=== PATIENT | female | born 1930 | race Caucasian/White ===

== ENCOUNTER 2016-11-22 14:34 | Inpatient (IN) | payer MEDICARE, OTHER ==
[~2016-11-22] VITALS: Ht 160 cm; Wt 65.9 kg
[~2016-11-22 14:34] MED LIST: ACET1TAB40 PO; ADV25050 INH; ALBU8.5H3 INH; AMI25 PO; APIX5TAB PO; CARV6.25 PO; DOCU-144 PO; DOCU-159 PO; ERGO500014 PO; EZET10TA3 PO; HYDR10TA36 PO; Isosorbide Dinitrate PO; LURA40TA PO; MECL-77 PO; NIT4 SL; OMEG1CAP2 PO; PANT40TA4 PO; TRAM50TA2 PO
--- NOTE | 2016-11-22 15:04 | ERA ---
ER Documentation Chief Complaint Date/Time DATE: 11/22/16 TIME: 15:04 Chief Complaint Shortness of breath shortness of breath HPI The patient is 86-year-old female, presenting to the ER because of acute shortness of breath, nasal congestion, cough, fever for the last couple days. She denies any headache, neck pain, chest pain, abdominal pain, vomiting, dysuria, diarrhea. She does not smoke nor drink Past medical history: CHF, rheumatoid arthritis, diabetes mellitus, chronic kidney disease, dyslipidemia, CAD, cardiomyopathy EF of 25%, hypertension, anemia, atrial fibrillation, COPD Past surgical history: CABG, pacemaker ROS All systems reviewed and are negative except as per history of present illness. Medications Home Meds Reported Medications Insulin Human Regular (Novolin-R U-100) 100 Unit/Ml Soln, 15 UNITS SC AC BREAKFAST DINNER, EA 11/22/16 Insulin Glargine* (Lantus*) 100 Unit/Ml Soln, 20-25 UNIT SC QHS, #1 VIAL 11/22/16 Metformin Hcl* (Metformin Hcl*) 500 Mg Tablet, 1000 MG PO WITH BREAKFAST DINNE, #60 TAB 11/22/16 Ezetimibe* (Zetia*) 10 Mg Tablet, 10 MG PO DAILY, TAB 11/22/16 Potassium Chloride* (Potassium Chloride*) 20 Meq Tablet.er, 20 MEQ PO DAILY, TAB.SA 11/22/16 Narvon-3 Acid Ethyl Esters (Lovaza) 1 Gm Capsule, 2 GM PO DAILY, CAP 11/22/16 Meclizine Hcl* (Bonine*) 25 Mg Tab.chew, 25 MG PO DAILY Y for VERTIGO, TAB.CHEW 11/22/16 Diphenhydramine Hcl* (Diphenhydramine Hcl*) 25 Mg Capsule, 25 MG PO DAILY Y for ITCHING, CAP 11/22/16 Ergocalciferol (Vitamin D2) (VITAMIN D2) 50,000 Unit Capsule, 76045 UNIT PO Q7D , CAP 11/22/16 Amitriptyline Hcl* (Amitriptyline Hcl*) 25 Mg Tablet, 25 MG PO QHS, #30 TAB 11/22/16 Apixaban* (Eliquis*) 2.5 Mg Tablet, 2.5 MG PO BID, TAB 11/22/16 Aspirin* (Aspirin* EC) 81 Mg Tablet.dr, 81 MG PO DAILY, TAB 11/22/16 Naproxen* (Naproxen*) 500 Mg Tablet, 500 MG PO BID, TAB 11/22/16 Allopurinol* (Allopurinol*) 100 Mg Tablet, 100 MG PO DAILY, TAB 11/22/16 Ferrous Sulfate* (Ferrous Sulfate*) 325 Mg Tabec, 325 MG PO DAILY, TAB 11/22/16 Hydralazine Hcl* (Hydralazine Hcl*) 10 Mg Tablet, 10 MG PO Q6H, #60 TAB 11/22/16 Glyburide* (Glyburide*) 5 Mg Tablet, 5 MG PO BID, #60 TAB 11/22/16 Dexlansoprazole (Dexilant) 60 Mg Cap..mp, 60 MG PO DAILY, #30 CAP 11/22/16 Furosemide* (Furosemide*) 40 Mg Tablet, 40 MG PO QID, TAB 11/22/16 Cilostazol* (Cilostazol*) 100 Mg Tablet, 100 MG PO BID, TAB 11/22/16 Carvedilol* (Carvedilol*) 6.25 Mg Tablet, 6.25 MG PO BID, #60 TAB 11/22/16 Isosorbide Dinitrate* (Isosorbide Dinitrate*) 20 Mg Tablet, 20 MG PO TID, TAB 11/22/16 Digoxin* (Digox*) 125 Mcg Tablet, 0.125 MG PO DAILY, TAB 11/22/16 Cyclobenzaprine Hcl* (Cyclobenzaprine Hcl*) 10 Mg Tablet, 10 MG PO DAILY, #60 TAB 11/22/16 Discontinued Reported Medications Acetaminophen-Codeine* (Acetaminophen-Cod #3*) 300-30 Mg Tab, 1 TAB PO BID Y for PAIN, TAB 05/07/15 Salmeterol Xinaf/Fluticasone* (Advair*) 250-50 Diskus Inhaler, 1 INH INH BID, INH 05/07/15 Lurasidone Hcl (LATUDA) 40 Mg Tablet, 40 MG PO DAILY 05/07/15 Ergocalciferol* (Drisdol* (Vitamin D2)) 50,000 Unit Capsule, 67801 UNIT PO Q7D, CAP 05/07/15 Amitriptyline Hcl* (Elavil*) 25 Mg Tab, 25 MG PO HS, TAB 05/07/15 Albuterol Sulfate* (Proair HFA*) 8.5 Gm Hfa.aer.ad, 2 PUFF INH Q4H Y for WHEEZING AND SOB, INH 05/07/15 Docusate Sodium* (Docusate Sodium*) 100 Mg Capsule, 100 MG PO QID, CAP 05/07/15 Meclizine Hcl* (Meclizine Hcl*) 25 Mg Tablet, 25 MG PO DAILY, TAB 05/07/15 Narvon-3 Acid Ethyl Esters (Lovaza) 1 Gm Capsule, 1 GM PO BID, CAP 05/07/15 Ezetimibe* (Zetia*) 10 Mg Tablet, 10 MG PO HS, TAB 05/07/15 Tramadol HCl (Tramadol HCl) 50 Mg Tab, 50 MG PO BID, TAB 05/07/15 Nitroglycerin* (Nitrostat*) 0.4 Mg Tab.subl, 0.4 MG SL Q5MIN Y for CHEST PAIN, BOTTLE 05/07/15 Discontinued Scripts Hydralazine Hcl* (Apresoline*) 10 Mg Tab, 10 MG PO BID for 30 Days, TAB Prov:PEG YEPEZ 05/11/15 [Isosorbide Dinitrate] 10 MG TAB No Conflict Check, 10 MG PO BID for 30 Days, TAB Prov:REGPEG DENISE 05/11/15 Carvedilol* (Coreg*) 6.25 Mg Tab, 6.25 MG PO BID for 30 Days Prov:PEG YEPEZ 05/11/15 Apixaban* (Eliquis*) 5 Mg Tablet, 2.5 MG PO BID for 30 Days Prov:PEG YEPEZ 05/11/15 Docusate Sodium* (Colace*) 100 Mg Capsule, 200 MG PO BID for 30 Days, CAP Prov:REGPEG DENISE 05/11/15 Pantoprazole (Protonix) 40 Mg Tabec, 40 MG PO DAILY@06, #30 Prov:PEG YEPEZ 05/11/15 Allergies Allergies: Coded Allergies: No Known Allergies (Verified Allergy, Mild, 11/22/16) PMhx/Soc History of Surgery: Yes (pacemaker, CABG) Anesthesia Reaction: No Hx Neurological Disorder: No Hx Respiratory Disorders: Yes (COPD) Hx Cardiac Disorders: Yes (CHF, CAD, HTN,CABG, PACEMAKER) Hx Psychiatric Problems: Yes (DEPRESSION) Hx Miscellaneous Medical Probl: No (COPD, RA, OA, Back pain, DM) Hx Alcohol Use: No Hx Substance Use: No Hx Tobacco Use: No Physical Exam Vitals Vital Signs Date Time Temp Pulse Resp B/P Pulse Ox O2 Delivery O2 Flow Rate FiO2 11/22/16 17:27 4.0 11/22/16 16:25 85 18 132/46 Nasal Cannula 4.0 11/22/16 16:25 Nasal Cannula 4 11/22/16 15:51 102.1 84 20 132/72 92 Physical Exam Const: No acute distress. Head: Atraumatic. Eyes: Normal Conjunctiva. ENT: Normal External Ears, Nose and Mouth. Neck: Full range of motion. No meningismus. Resp: Bibasilar crackles, tachypneic Cardio: Regular rate and rhythm, no murmurs. Abd: Soft, non distended, normal bowel sounds, non tender. Skin: No petechiae or rashes. Back: No midline or flank tenderness. Ext: No cyanosis, or edema. Neur: Awake and alert. No focal deficit Psych: Normal Mood and Affect. Result Diagram: 11/22/16 1505 11/22/16 1505 Results 24 hrs Laboratory Tests Test 11/22/16 15:00 11/22/16 15:05 11/22/16 17:04 Phosphorus Level 3.3mg/dl Activated Partial Thromboplast Time 34.4Sec Alanine Aminotransferase (ALT/SGPT) 113IU/L Albumin 4.0g/dl Albumin/Globulin Ratio 1.29 Alkaline Phosphatase 99IU/L Anion Gap 24 Aspartate Amino Transf (AST/SGOT) 260IU/L Basophils # 0.010^3/ul Basophils % 0.1% Blood Urea Nitrogen 49mg/dl Calcium Level 9.3mg/dl Carbon Dioxide Level 17mmol/L Chloride Level 104mmol/L Creatinine 2.07mg/dl Direct Bilirubin 0.30mg/dl Eosinophils # 0.010^3/ul Eosinophils % 0.1% Globulin 3.10g/dl Glucose Level 453mg/dl Hematocrit 33.9% Hemoglobin 11.7g/dl INR International Normalized Ratio 1.90 Indirect Bilirubin 0.6mg/dl Lactic Acid Level 3.8mmol/L Lymphocytes # 0.610^3/ul Lymphocytes % 6.5% Mean Corpuscular Hemoglobin 31.1pg Mean Corpuscular Hemoglobin Concent 34.4g/dl Mean Corpuscular Volume 90.4fl Mean Platelet Volume 7.9fl Monocytes # 0.510^3/ul Monocytes % 5.8% Neutrophils # 8.010^3/ul Neutrophils % 87.5% Nucleated Red Blood Cells # 0.010^3/ul Nucleated Red Blood Cells % 0.0/100WBC Platelet Count 25847^3/UL Potassium Level 5.0mmol/L Prothrombin Time 22.0Sec Prothrombin Time Ratio 1.7 Red Blood Count 3.7510^6/ul Red Cell Distribution Width 13.4% Sodium Level 140mmol/L Total Bilirubin 0.9mg/dl Total Protein 7.1g/dl Troponin I 0.739ng/ml White Blood Count 9.110^3/ul Arterial Blood HCO3 18.8mmol/L Arterial Blood Base Excess -4.0mmol/L Arterial Blood Oxygen Saturation 97.0mmHG Paul Test ACCEPTAB Arterial Blood Gas Puncture Site Right Radial Arterial Blood Carboxyhemoglobin 0.1% Arterial Blood Date Drawn 11/22/2016 5:22:56 PM Arterial Blood Methemoglobin 0.3% Arterial Blood pCO2 (Temp correct) 28.0mmhg Arterial Blood pH (Temp corrected) 7.446 Arterial Blood pO2 (Temp corrected) 95.1mmHG Blood Gas A-a O2 Differential 107.5mmHg Blood Gas Modality NASAL CANNULA Blood Gas Notified Time 11/22/2016 5:28:20 PM Blood Gas Notified Whom MDA Blood Gas Specimen Source Blood arterial Blood Gas Temperature 37.0C FiO2 33.0% Oxyhemoglobin Percent 96.6% Total Hemoglobin 12.3g/dl Current Medications Medications (Trade) Dose Ordered Sig/Kevin Route PRN Reason Start Time Stop Time Status Last Admin Dose Admin Ceftriaxone Sodium 50 ml @ 100 mls/hr ONCE ONCE IVPB 11/22/16 16:00 11/22/16 16:29 DC 11/22/16 18:14 Azithromycin (Zithromax 500mg/ NS (Pmx)) 250 ml @ 250 mls/hr ONCE ONCE IVPB 11/22/16 16:00 11/22/16 16:59 DC Acetaminophen (Tylenol Tab) 650 mg ONCE ONCE PO 11/22/16 16:00 11/22/16 16:01 DC IV Flush (NS 3 ml) 3 ml PER PROTOCOL IV 11/22/16 17:00 Ondansetron HCl (Zofran Inj) 4 mg Q6H PRN IV NAUSEA AND/OR VOMITING 11/22/16 17:00 Acetaminophen (Tylenol Tab) 650 mg Q6H PRN PO PAIN LEVEL 1-3 OR FEVER 11/22/16 17:00 Acetaminophen/ Hydrocodone Bitart ([place] (5/325)) 1 tab Q6H PRN PO MODERATE PAIN LEVEL 4-6 11/22/16 17:00 Morphine Sulfate (morphine) 2 mg Q4H PRN IV SEVERE PAIN LEVEL 7-10 11/22/16 17:00 Docusate Sodium (Colace) 100 mg Q12H PRN PO CONSTIPATION 11/22/16 17:00 Magnesium Hydroxide (Milk Of Mag) 30 ml DAILY PRN PO CONSTIPATION 11/22/16 17:00 Sodium Biphosphate/ Sodium Phosphate (Fleet Enema) 133 ml DAILY PRN [place] CONSTIPATION 11/22/16 17:00 Pantoprazole (Protonix Iv) 40 mg DAILY@06 IV 11/23/16 06:00 UNV Lorazepam 0.5 mg 0.5 mg Q6H PRN IV ANXIETY 11/22/16 17:00 Sodium Chloride (NS) 1,000 ml @ 100 mls/hr Q10H IV 11/22/16 16:50 Albuterol/ Ipratropium (Duoneb) 3 ml Q4H RESP THERAPY PRN HHN SHORTNESS OF BREATH 11/22/16 17:00 Vancomycin HCl (Vanco Iv Per Pharmacy) VANCOMYCIN PER PHARMACY NOTE XX 11/22/16 17:00 Hydralazine HCl (Apresoline) 10 mg Q6H PRN IV ELEVATED BLOOD PRESSURE 11/22/16 17:00 Nitroglycerin (Nitroglycerin (Sl Tab) 0.4 Mg) 1 tab Q5M PRN SL ANGINA 11/22/16 17:00 Aspirin (Ecotrin) 325 mg DAILY PO 11/23/16 09:00 UNV Dextrose (D50w Syringe) 50 ml Q15M PRN IV For BS 50 or less 11/22/16 17:00 Dextrose 25 ml 25 ml Q15M PRN IV BS between 50-70 11/22/16 17:00 Sodium Chloride 1,000 ml @ 1,000 mls/hr Q1H IV 11/22/16 16:50 11/22/16 17:49 DC 11/22/16 17:54 Lactated Ringer's 1,000 ml @ 1,000 mls/hr Q1H IV 11/22/16 17:50 11/22/16 18:49 Potassium Chloride 10 meq/ Sodium Chloride 1,005 ml @ 500 mls/hr Q2H1M IV 11/22/16 18:50 11/22/16 20:49 Insulin Human Regular/Sodium Chloride (Humulin R/NS) 100 ml @ 0 mls/hr DKA PROTOCOL IV 11/22/16 17:00 Diagnostic Test (Pha) (Accucheck) 1 ea Q1H XX 11/22/16 17:00 Miscellaneous Information (* Miscellaneous Pharmacy Order) HYPOGLYCEMIA TREATMENT HYPOGLYCEM PROTOCOL PRN XX Hypoglycemia (BS < 70) 11/22/16 17:00 11/22/16 17:07 DC Carvedilol (Coreg) 6.25 mg BID PO 11/22/16 21:00 UNV Digoxin (Digoxin) 0.125 mg DAILY PO 11/23/16 09:00 UNV EZETIMIBE (Zetia) 10 mg DAILY PO 11/23/16 09:00 UNV Hydralazine HCl (Apresoline) 10 mg Q6H PO 11/22/16 17:00 UNV Isosorbide Dinitrate (Isordil) 20 mg TID PO 11/22/16 21:00 UNV Miscellaneous Information 60 mg DAILY PO 11/23/16 09:00 UNV Miscellaneous Information 2 gm 2 gm DAILY PO 11/23/16 09:00 UNV Cefepime HCl (Maxipime 1gm/50 ml (Pmx)) 50 ml @ 100 mls/hr Q24H IVPB 11/22/16 21:00 Aspirin (Aspirin) 162 mg ONCE ONCE PO 11/22/16 17:30 11/22/16 17:31 DC Miscellaneous Information 1 ea NOTE XX 11/22/16 17:30 11/22/16 17:30 DC Glucose (Glutose) 15 gm Q15M PRN PO DECREASED GLUCOSE 11/22/16 17:30 11/22/16 17:30 DC Glucose (Glutose) 22.5 gm Q15M PRN PO DECREASED GLUCOSE 11/22/16 17:30 11/22/16 17:30 DC Dextrose (D50w Syringe) 25 ml Q15M PRN IV DECREASED GLUCOSE 11/22/16 17:30 11/22/16 17:30 DC Dextrose (D50w Syringe) 50 ml Q15M PRN IV DECREASED GLUCOSE 11/22/16 17:30 11/22/16 17:30 DC Glucagon (Glucagen) 1 mg Q15M PRN IM DECREASED GLUCOSE 11/22/16 17:30 11/22/16 17:30 DC Glucose (Glutose) 15 gm Q15M PRN BUCCAL DECREASED GLUCOSE 11/22/16 17:30 11/22/16 17:30 DC Miscellaneous Information HYPOGLYCEMIA TREATMENT HYPOGLYCEM PROTOCOL PRN XX Hypoglycemia (BS < 70) 11/22/16 17:30 11/22/16 17:31 DC Vancomycin HCl/ Sodium Chloride (Vancocin/NS) 500 ml @ 125 mls/hr NOW IVPB 11/22/16 18:30 11/22/16 22:29 Furosemide (Lasix) 40 mg BID IV 11/22/16 21:00 UNV Procedures/[place] [address] Radiology Main Line: [phone] DIAGNOSTIC IMAGING REPORT Patient: DENNIS STEVENS : 1930 Age: 86 Sex: F MR #: [id number] DOS: 11/22/16 1435 Ordering MD: TENISHA PADGETT MD Location: E/R Room/Bed: PROCEDURE: XR Chest. CLINICAL INDICATION: Sepsis TECHNIQUE: Chest AP portable. COMPARISON: 01/09/2016 FINDINGS: Sternotomy and CABG. Left-sided multi lead biventricular pacemaker/AICD device. The mediastinal structures are unremarkable. There is calcification of the thoracic aorta (consistent with atherosclerosis). There is mild cardiomegaly. There is mild congestive heart failure. There are RLL and left perihilar patchy consolidations (query pneumonia). The pleural spaces are unremarkable. There are senescent changes of the axial skeleton. IMPRESSION: Mild cardiomegaly. Mild congestive heart failure. RLL and left perihilar patchy consolidations (query pneumonia). RPTAT: HGDB .Wilfrid Butler MD, Date Time Electronically viewed and signed by .Wilfrid Butler MD, on 11/22/2016 15:50 .B/ CC: TENISHA PADGETT MD EKG: Read by emergency physician Rate/Rhythm: Pacer at 76 beats per min No Further attempt to interpret the EKG MEDICAL MAKING DECISION: The patient is a 86-year-old female, presenting to the ER because of acute severe sepsis, acute community-acquired pneumonia, acute hypoxemia, acute diabetic hyperglycemia, acute elevated troponin, acute CHF. He was treated with Rocephin IV, Zithromax IV, Tylenol for fever, aspirin 160 mg p.o. due to elevated troponin, Lasix 40 mg IV for acute CHF. The differential diagnoses considered include but are not limited to asthma, COPD, pneumonia, pulmonary embolus, pleural effusion, congestive heart failure, non- STEMI, HHS, DKA Admit MDM: Patient's infectious symptoms have not stabilized and the patient is at risk of rapid decompensation. The patient will be admitted for careful hydration, antibiotic therapy, and infectious source control. Severe Sepsis criteria: Infectious source: Pneumonia End organ damage indicated by: Lactate > 2.0 mmol/L Sepsis Management: Time of recognition of severe sepsis/septic shock:3:10 PM Within 3 hours of recognition: Blood cultures x 2 before broad-spectrum antibiotics: Yes 30 ml/kg NS bolus not completed because of existing concurrent CHF and chronic kidney disease Initial lactate 3.8 Repeat lactate pending Critical Care: Critical care time 35 minutes Emergent fluid management while maintaining close respiratory support. Provision of immediate and broad-spectrum antibiotic therapy. Simultaneous assessment for possible sources in order to direct targeted therapy. Consideration for invasive and chemical support to prevent cardiopulmonary collapse. Septic Shock Assessment: Any lactic acid > 4.0 no Persistent hypotension (SBP < 90 or 40 mmHg drop, MAP < 65) despite 30 mL/kg IV fluid bolusno Departure Diagnosis: Primary Impression: Severe sepsis Additional Impressions: Pneumonia CHF (congestive heart failure) Hypoxemia Hyperglycemia due to type 2 diabetes mellitus Elevated troponin Anemia Transaminitis Condition: Serious Comments I discussed the findings with the patient. I discussed the patient with the hospitalist Dr. Gonzalez. who was made aware of the lab, the treatment, the patient condition. The patient is admitted to ICU at 4:[address] Gonzalez is going to address the diabetic hyperglycemia. He was to start the patient on insulin drTITO Giraldo MD Nov 22, 2016 15:04
[2016-11-22] MEDS ORDERED: CYCL-319 PO (15:18)
[2016-11-22] MEDS ORDERED: DIGO125T19 PO (15:20)
[2016-11-22] MEDS ORDERED: ISOS20TA19 PO (15:21)
[2016-11-22 15:22] LABS: BASOPHILS % 0.1 % (0.0-2.0); EOSINOPHILS % 0.1 % (0.0-7.0); HEMATOCRIT 33.9 % (37.0-47.0); HEMOGLOBIN 11.7 g/dl (12.0-16.0); LYMPHOCYTES # 0.6 10^3/ul (0.8-2.9); LYMPHOCYTES % 6.5 % (15.0-51.0); MEAN CORPUSCULAR HEMOGLOBIN 31.1 pg (29.0-33.0); MEAN CORPUSCULAR HGB CONC 34.4 g/dl (32.0-37.0); MEAN CORPUSCULAR VOLUME 90.4 fl (82.0-101.0); MEAN PLATELET VOLUME 7.9 fl (7.4-10.4); MONOCYTE # 0.5 10^3/ul (0.3-0.9); MONOCYTES % 5.8 % (0.0-11.0); NEUTROPHILS % 87.5 % (39.0-77.0); PLATELET COUNT 151 10^3/UL (140-440); RED BLOOD COUNT 3.75 10^6/ul (4.20-5.40); RED CELL DISTRIBUTION WIDTH 13.4 % (11.5-14.5); UNCORRECTED WBC 9.1 10^3/ul (4.8-10.8); WHITE BLOOD COUNT 9.1 10^3/ul (4.8-10.8)
[2016-11-22] MEDS ORDERED: CARV6.2579 PO (15:22)
[2016-11-22] MEDS ORDERED: CILO100T PO (15:22)
[2016-11-22] MEDS ORDERED: FURO40TA4 PO (15:23)
[2016-11-22 15:24] LABS: CONDITION 1
[2016-11-22] MEDS ORDERED: DEXL60CA2 PO (15:29)
[2016-11-22] MEDS ORDERED: GLYB5TAB3 PO (15:30)
[2016-11-22] MEDS ORDERED: HYDR-3670 PO (15:31)
[2016-11-22] MEDS ORDERED: FER325 PO (15:36)
[2016-11-22] MEDS ORDERED: ALLO100T PO (15:37)
[2016-11-22] MEDS ORDERED: APIX2.5T PO (15:38)
[2016-11-22] MEDS ORDERED: ASPI-664 PO (15:38)
[2016-11-22] MEDS ORDERED: NAPR-688 PO (15:38)
[2016-11-22] MEDS ORDERED: AMIT25TA9 PO (15:39)
[2016-11-22] MEDS ORDERED: ERGO500037 PO (15:40)
[2016-11-22] MEDS ORDERED: MECL-90 PO (15:41)
[2016-11-22] MEDS ORDERED: DIPH25CA6 PO (15:41)
[2016-11-22] MEDS ORDERED: OMEG1CAP2 PO (15:43)
[2016-11-22] MEDS ORDERED: POTA20TA96 PO (15:44)
[2016-11-22] MEDS ORDERED: EZET10TA3 PO (15:44)
[2016-11-22 15:46] LABS: ALBUMIN/GLOBULIN RATIO 1.29; BILIRUBIN,DIRECT 0.3 mg/dl (0.00-0.20); BILIRUBIN,INDIRECT 0.6 mg/dl (0-1.1); BILIRUBIN,TOTAL 0.9 mg/dl (0.2-1.3); CREATININE 2.07 mg/dl (0.44-1.00); TOTAL PROTEIN 7.1 g/dl (6.1-8.1)
[2016-11-22 15:47] LABS: CALCIUM 9.3 mg/dl (8.4-10.2)
[2016-11-22] MEDS ORDERED: METF-382 PO (15:49)
[2016-11-22] MEDS ORDERED: LANT3I SC (15:49)
[2016-11-22] MEDS ORDERED: SS SC (15:50)
[2016-11-22 15:51] VITALS: Ht 160 cm; Wt 65.9 kg
--- NOTE | 2016-11-22 15:51 | RADRPT ---
PROCEDURE: XR Chest. CLINICAL INDICATION: Sepsis TECHNIQUE: Chest AP portable. COMPARISON: 01/09/2016 FINDINGS: Sternotomy and CABG. Left-sided multi lead biventricular pacemaker/AICD device. The mediastinal structures are unremarkable. There is calcification of the thoracic aorta (consiste nt with atherosclerosis). There is mild cardiomegaly. There is mild congestive heart failure. The re are RLL and left perihilar patchy consolidations (query pneumonia). The pleural spaces are unrem arkable. There are senescent changes of the axial skeleton. IMPRESSION: Mild cardiomegaly. Mild congestive heart failure. RLL and left perihilar patchy consolidations (query pneumonia). RPTAT: HGDB .Wilfrid Butler MD, MD Date Time Electronically viewed and signed by .Wilfrid Butler MD, on 11/22/2016 15:50 .B/
[2016-11-22] MEDS ORDERED: ACETAMINOPHEN 325 MG TAB PO ONE (16:00)
[2016-11-22] MEDS ORDERED: CEFTRIAXONE 1 GM/50 ML (PMX) 50 ML IVPB ONE (16:00)
[2016-11-22] MEDS ORDERED: AZITHROMYCIN 500MG/NS (PMX) 250 ML IVPB ONE (16:00)
[2016-11-22 16:04] LABS: INR 1.9; PARTIAL THROMBOPLASTIN TIME 34.4 Sec (25.0-35.0); PT RATIO 1.7
[2016-11-22 16:16] LABS: TROPONIN-I 0.739 ng/ml (0.00-0.12)
[2016-11-22] MEDS ORDERED: SOD CHLORIDE 0.9% 1,000 ML IV SCH ×2 (16:50)
[2016-11-22] MEDS ORDERED: INSULIN REGULAR, HUMAN 100 UNIT in SOD CHLORIDE 0.9% 99 ML IV SCH ×2 (17:00)
[2016-11-22] MEDS ORDERED: DEXTROSE 50% 50 ML SYRINGE IV PRN ×4 (17:00→17:30)
[2016-11-22] MEDS ORDERED: hydrALAzine 20 MG INJ IV PRN (17:00)
[2016-11-22] MEDS ORDERED: morphine 2 MG INJ IV PRN (17:00)
[2016-11-22] MEDS ORDERED: ONDANSETRON 4 MG INJ IV PRN (17:00)
[2016-11-22] MEDS ORDERED: MAGNESIUM HYDROXIDE 30ML CUP PO PRN (17:00)
[2016-11-22] MEDS ORDERED: NITROGLYCERIN (SL) 0.4 MG TAB SL PRN (17:00)
[2016-11-22] MEDS ORDERED: NACL 0.9% 3 ML SYG IV SCH (17:00)
[2016-11-22] MEDS ORDERED: ACETAMINOPHEN 325 MG TAB PO PRN (17:00)
[2016-11-22] MEDS ORDERED: LORAZEPAM 2 MG INJ IV PRN (17:00)
[2016-11-22] MEDS ORDERED: NA PHOSPHATE/BIPHOS 133 ML ENEMA PR PRN (17:00)
[2016-11-22] MEDS ORDERED: DOCUSATE SODIUM 100 MG CAP PO PRN (17:00)
[2016-11-22] MEDS ORDERED: ALBUTEROL/IPRATROPIUM (NEB) 3 ML AMP HHN PRN (17:00)
[2016-11-22] MEDS ORDERED: VANCOMYCIN IV PER PHARMACY XX SCH (17:00)
[2016-11-22] MEDS ORDERED: HYPOGLYCEMIA TREATMENT XX PRN ×2 (17:00→17:30)
[2016-11-22 17:28] LABS: AADO2 Arterial 107.5 mmHg (7.0-24.0); Allen Test ACCEPTAB; Arterial COHb 0.1 % (0.0-3.0); Arterial Fraction of Oxyhgb 96.6 % (93.0-99.0); Arterial HCO3 18.8 mmol/L (22.0-26.0); Arterial MetHb 0.3 % (0.0-1.5); Arterial Total Hemglobin 12.3 g/dl (12.0-18.0); MODE NASAL CANNULA
[2016-11-22] MEDS ORDERED: GLUCOSE GEL 15 GRAM TUBE BUCCAL PRN (17:30)
[2016-11-22] MEDS ORDERED: GLUCAGON 1 MG INJ IM PRN (17:30)
[2016-11-22] MEDS ORDERED: GLUCOSE GEL 15 GRAM TUBE PO PRN ×2 (17:30)
[2016-11-22] MEDS ORDERED: ASPIRIN 81 MG TAB PO ONE (17:30)
[2016-11-22] MEDS ORDERED: LACTATED RINGER'S 1,000 ML IV SCH (17:50)
[2016-11-22] MEDS ORDERED: VANCOMYCIN 1.75 GM in SOD CHLORIDE 0.9% 500 ML IVPB SCH (18:30)
[2016-11-22] MEDS ORDERED: FUROSEMIDE 40 MG INJ IV ONE (18:30)
--- NOTE | 2016-11-22 18:33 | CONS ---
Date/Time of Note Date/Time of Note DATE: 11/22/16 TIME: 18:18 Assessment/Plan Assessment/Plan Chief Complaint/Hosp Course Acute respiratory distress: In decompensated heart failure by exam and CXR. Also being treated for PNA Acute on chronic systolic/diastolic heart failure: EF 25% 1 yr ago. Decompensated by exam NSTEMI: Likely type II in setting of ADHF. Per family, pt has not had a cardiac cath since her surgery Acute on chronic renal failure: likely from above Lactic acidosis Paroxysmal afib CAD s/p CABG BiV ICD -lasix 40mg IV BID, hold fluids -decrease to ASA 81mg daily -statin -continue Eliquis -continue coreg, isordil/hydralazine -continue digoxin, check level in am -trend trops -repeat echo Problems: Consultation Date/Type/Reason Admit Date/Time Date of Consultation: Nov 22, 2016 Type of Consultation: Cardiology Reason for Consultation Respiratory failure, NSTEMI Referring Provider: LUIZA PENA Hx of Present Illness 86 yo F with a h/o CAD s/p CABG (20+yrs ago), s/p BiV ICD (~7 months ago), Ischemic cardiomyopathy (EF 25%), paroxysmal afib on Eliquis, CKD (Cr ~1.5-2), DM, HTN, who presented with SOB. The pt's family notes that she had a "cold" two days ago and since then she has been having increasing SOB, orthopnea but no chest pain. She has been hospitalized many times for CHF exacerbation and per the family she has been doing much better since her ICD. She is compliant with her medications as her family assists her. Currently SOB is improved. No chest pain. per HPI Past Medical History per HPI Past Surgical History Past Surgical Hx: coronary bypass surgery Social History Smoking Status: Never smoker Exam/Review of Systems Vital Signs Vitals Vital Signs Date Time Temp Pulse Resp B/P Pulse Ox O2 Delivery O2 Flow Rate FiO2 11/22/16 17:27 4.0 11/22/16 16:25 85 18 132/46 Nasal Cannula 11/22/16 15:51 102.1 92 Exam Constitutional: alert, frail, oriented, No distress Head: atraumatic, normocephalic Neck: jvd (12cm) Respiratory: crackles/rales, No clear to auscultation, No wheezing Cardiovascular: edema (1+), regular rate and rhythm, systolic murmur (3/6 AURA) Gastrointestinal: non-tender, soft Neurological: nl mental status Results EKG: BiV and single chamber pacing Result Diagram: 11/22/16 1505 11/22/16 1505 Results 24 hrs Laboratory Tests Test 11/22/16 15:00 11/22/16 15:05 11/22/16 17:04 Phosphorus Level 3.3 Activated Partial Thromboplast Time 34.4 Alanine Aminotransferase (ALT/SGPT) 113 H Albumin 4.0 Albumin/Globulin Ratio 1.29 Alkaline Phosphatase 99 Anion Gap 24 H Aspartate Amino Transf (AST/SGOT) 260 H Basophils # 0.0 Basophils % 0.1 Blood Urea Nitrogen 49 H Calcium Level 9.3 Carbon Dioxide Level 17 L Chloride Level 104 Creatinine 2.07 H Direct Bilirubin 0.30 H Eosinophils # 0.0 Eosinophils % 0.1 Globulin 3.10 Glucose Level 453 *H Hematocrit 33.9 L Hemoglobin 11.7 #L INR International Normalized Ratio 1.90 Indirect Bilirubin 0.6 Lactic Acid Level 3.8 H Lymphocytes # 0.6 L Lymphocytes % 6.5 L Mean Corpuscular Hemoglobin 31.1 Mean Corpuscular Hemoglobin Concent 34.4 Mean Corpuscular Volume 90.4 Mean Platelet Volume 7.9 Monocytes # 0.5 Monocytes % 5.8 Neutrophils # 8.0 H Neutrophils % 87.5 H Nucleated Red Blood Cells # 0.0 Nucleated Red Blood Cells % 0.0 Platelet Count 151 # Potassium Level 5.0 Prothrombin Time 22.0 H Prothrombin Time Ratio 1.7 Red Blood Count 3.75 L Red Cell Distribution Width 13.4 Sodium Level 140 Total Bilirubin 0.9 Total Protein 7.1 Troponin I 0.739 *H White Blood Count 9.1 # Arterial Blood HCO3 18.8 L Arterial Blood Base Excess -4.0 L Arterial Blood Oxygen Saturation 97.0 Paul Test ACCEPTAB Arterial Blood Gas Puncture Site Right Radial Arterial Blood Carboxyhemoglobin 0.1 Arterial Blood Date Drawn 11/22/2016 5:22:56 PM Arterial Blood Methemoglobin 0.3 Arterial Blood pCO2 (Temp correct) 28.0 L Arterial Blood pH (Temp corrected) 7.446 Arterial Blood pO2 (Temp corrected) 95.1 H Blood Gas A-a O2 Differential 107.5 H Blood Gas Modality NASAL CANNULA Blood Gas Notified Time 11/22/2016 5:28:20 PM Blood Gas Notified Whom MDA Blood Gas Specimen Source Blood arterial Blood Gas Temperature 37.0 FiO2 33.0 Oxyhemoglobin Percent 96.6 Total Hemoglobin 12.3 Medications Medications Current Medications Ondansetron HCl (Zofran Inj) 4 mg Q6H PRN IV NAUSEA AND/OR VOMITING; Start at 17:00 Acetaminophen (Tylenol Tab) 650 mg Q6H PRN PO PAIN LEVEL 1-3 OR FEVER; Start at 17:00 Acetaminophen/ Hydrocodone Bitart ([place] (5/325)) 1 tab Q6H PRN PO MODERATE PAIN LEVEL 4-6; Start 11/22/16 at 17:00 Morphine Sulfate (morphine) 2 mg Q4H PRN IV SEVERE PAIN LEVEL 7-10; Start 11/22 at 17:00 Docusate Sodium (Colace) 100 mg Q12H PRN PO CONSTIPATION; Start 11/22/16 at 17: 00 Magnesium Hydroxide (Milk Of Mag) 30 ml DAILY PRN PO CONSTIPATION; Start at 17:00 Sodium Biphosphate/ Sodium Phosphate (Fleet Enema) 133 ml DAILY PRN [place] CONSTIPATION; Start 11/22/16 at 17:00 Pantoprazole (Protonix Iv) 40 mg DAILY@06 IV ; Start 11/23/16 at 06:00; Status UNV Lorazepam 0.5 mg 0.5 mg Q6H PRN IV ANXIETY; Start 11/22/16 at 17:00 Sodium Chloride (NS) 1,000 ml @ 100 mls/hr Q10H IV ; Start 11/22/16 at 16:50 Vancomycin HCl (Vanco Iv Per Pharmacy) VANCOMYCIN PER PHARMACY NOTE XX ; Start 11/22/16 at 17:00 Hydralazine HCl (Apresoline) 10 mg Q6H PRN IV ELEVATED BLOOD PRESSURE; Start at 17:00 Nitroglycerin (Nitroglycerin (Sl Tab) 0.4 Mg) 1 tab Q5M PRN SL ANGINA; Start at 17:00 Aspirin (Ecotrin) 325 mg DAILY PO ; Start 11/23/16 at 09:00; Status UNV Dextrose (D50w Syringe) 50 ml Q15M PRN IV For BS 50 or less; Start 11/22/16 at 17:00 Dextrose 25 ml 25 ml Q15M PRN IV BS between 50-70; Start 11/22/16 at 17:00 Lactated Ringer's 1,000 ml @ 1,000 mls/hr Q1H IV ; Start 11/22/16 at 17:50; Stop 11/22/16 at 18:49 Potassium Chloride/Sodium Chloride (KCl/NS) 1,005 ml @ 500 mls/hr Q2H1M IV ; Start 11/22/16 at 18:50; Stop 11/22/16 at 20:49 Diagnostic Test (Pha) (Accucheck) 1 ea Q1H XX ; Start 11/22/16 at 17:00 Carvedilol (Coreg) 6.25 mg BID PO ; Start 11/22/16 at 21:00; Status UNV Digoxin (Digoxin) 0.125 mg DAILY PO ; Start 11/23/16 at 09:00; Status UNV EZETIMIBE (Zetia) 10 mg DAILY PO ; Start 11/23/16 at 09:00; Status UNV Hydralazine HCl (Apresoline) 10 mg Q6H PO ; Start 11/22/16 at 17:00; Status UNV Isosorbide Dinitrate (Isordil) 20 mg TID PO ; Start 11/22/16 at 21:00; Status UNV Miscellaneous Information 60 mg DAILY PO ; Start 11/23/16 at 09:00; Status UNV Miscellaneous Information 2 gm 2 gm DAILY PO ; Start 11/23/16 at 09:00; Status UNV Cefepime HCl 50 ml @ 100 mls/hr Q24H IVPB ; Start 11/22/16 at 21:00 Vancomycin HCl/ Sodium Chloride (Vancocin/NS) 500 ml @ 125 mls/hr NOW IVPB ; Start 11/22/16 at 18:30; Stop 11/22/16 at 22:29 GREG CAZARES Nov 22, 2016 18:31
[2016-11-22] MEDS ORDERED: POTASSIUM CHLORIDE 10 MEQ in SOD CHLORIDE 0.9% 1,000 ML IV SCH (18:50)
[2016-11-22] MEDS: ACCUCHECK XX SCH ×7 (19:00→23:00)
[2016-11-22 19:51] LABS: CREATININE 2.05 mg/dl (0.44-1.00)
[2016-11-22 19:52] LABS: CALCIUM 9.5 mg/dl (8.4-10.2)
[2016-11-22 20:00] LABS: CK-MB 8.83 ng/ml (0.0-2.4)
--- NOTE | 2016-11-22 20:02 | HP ---
DATE OF ADMISSION: 11/22/2016 CHIEF COMPLAINT: Weakness and shortness of breath. HISTORY OF PRESENT ILLNESS: An 86-year-old female, past medical history of CAD, status post CABG; h istory of AICD placed about 8 months ago; history of ischemic cardiomyopathy, ejection fraction 25%; history of paroxysmal AFib, on Eliquis; chronic kidney disease; type 2 diabetes; rheumatoid arthrit is; hypertension who presents with weakness and runny nose and shortness of breath. Per family, the patient has been having a runny nose for the last 2 days. They gave her NyQuil at home which did n ot relieve her symptoms. Her shortness of breath got worse. She also had some chest pain as well. She also had some cough that they thought was blood-tinged sputum. No significant fevers or chills . No nausea, vomiting. No headaches or dizziness, loss of consciousness. No diarrhea, no constipa tion. Apparently, per records, she has been hospitalized many times for CHF in the past. When she came in today, she had findings of elevated blood sugars of 450, lactic acid of 3.8. Her anion gap was elevated at 24. Her creatinine was elevated at 2.07 as well, and her troponin was 0.739. She a lso had a fever of 102.1 as well. PAST MEDICAL HISTORY: As stated above. ALLERGIES: NO KNOWN DRUG ALLERGIES. HOME MEDICINES: 1. Benadryl 25 mg daily p.r.n. 2. Cyclobenzaprine 10 mg daily. 3. Eliquis 2.5 mg b.i.d. 4. Cilostazol 100 mg b.i.d. 5. Ferrous sulfate 325 mg daily. 6. Coreg 6.25 mg b.i.d. 7. Digoxin 0.125 mg daily. 8. Zetia 10 mg daily. 9. Hydralazine 10 mg q.6 hours. 10. Imdur 20 mg t.i.d. 11. Lovaza 2 grams daily. 12. Amitriptyline 25 mg at bedtime. 13. Aspirin 81 mg daily. 14. Naproxen 500 mg b.i.d. 15. Lasix 40 mg q.i.d. 16. Potassium chloride 20 mEq daily. 17. Dexilant 60 mg daily. 18. Meclizine 25 daily p.r.n. 19. Glyburide 5 mg b.i.d. 20. Lantus 25 units subQ at bedtime. 21. Novolin-R insulin 15 units with breakfast and dinner. 22. Metformin 1000 mg breakfast and dinner. 23. Vitamin D2 50,000 units weekly. 24. Allopurinol 100 mg daily. PAST SURGICAL HISTORY: Again, she had AICD placement 7to 8 months ago and bypass surgery in the pas t. FAMILY HISTORY: Noncontributory. SOCIAL HISTORY: Negative for smoking, drinking, IV drug abuse. VITAL SIGNS: T-max 102.1, pulse 85, respirations 18, blood pressure 132/46, saturating at 92% on 4 L nasal cannula. PHYSICAL EXAMINATION: GENERAL: The patient appears lethargic and frail but opens eyes. HEENT: Pupils equal, round, react to light. Extraocular muscles intact. NECK: Supple. No thyromegaly. LUNGS: Positive crackles and rales heard at the bases bilaterally. No wheezes. CARDIOVASCULAR: S1 and S2 heard. There is a III/ systolic murmur heard best at left sternal bord er, otherwise regular rate and rhythm. ABDOMEN: Soft, nontender, nondistended. Normal bowel sounds. No rebound or guarding. MUSCULOSKELETAL: 1+ pitting edema, bilateral lower extremities to mid calves. NEUROLOGIC: No focal deficits. LABORATORIES: WBC 9.1, hemoglobin 11.7, hematocrit 33.9, platelets 151. Sodium 140, potassium 5.0, chloride 104, CO2 17, BUN 49, creatinine 2.07, glucose 453. IMAGING: Chest x-ray: Mild congestive heart failure, mild cardiomegaly. Right lower lobe and left perihilar patchy consolidations, cannot rule out pneumonia. ASSESSMENT AND PLAN: An 86-year-old female coming in with respiratory distress, most likely seconda ry to combination of congestive heart failure exacerbation and pneumonia, also signs of non-ST eleva tion myocardial infarction, lactic acidosis and acute on chronic renal failure. 1. Respiratory distress, again signs of congestive heart failure. Will get cardiology consult. Antonia logan will be diuresed as well on Lasix IV b.i.d. Will hold her IV fluids. Continue digoxin and Zetia medicines. Check TSH, A1c, lipid panel. Continue Isordil as well. Put her on broad spectrum antib iotics, cefepime and vancomycin for now. Monitor ins and outs. Check echocardiogram as well. 2. Elevated troponins. Again, rule out for acute coronary syndrome. Get radiology consult. Trend her troponins. High-dose aspirin as well. 3. Acute on chronic renal failure. Again, continue to monitor for now. Get renal consult as well. 4. Lactic acidosis. Monitor lactic acid for now. Holding off on IV fluids given her heart failure . 5. History of paroxysmal atrial fibrillation. Consider restarting her Eliquis. 6. History of coronary artery disease, status post coronary artery bypass graft in the past. Again , follow up cardiology recommendations. We are diuresing her at this present time. Continue her El iquis and aspirin for now. 7. History of type 2 diabetes. Put on sliding scale insulin, check A1c. 8. Rheumatoid arthritis. Continue to monitor for now. 9. Gastrointestinal prophylaxis. She will be on PPI. 10. Deep venous thrombosis prophylaxis. SCDs. Dictated By: LUIZA RIVERS Conf#: [id number] DID#: [id number]
[2016-11-22 20:15] LABS: TROPONIN-I 3.04 ng/ml (0.00-0.12)
[2016-11-22] MEDS: ISOSORBIDE DINITRATE 20 MG TAB PO SCH (21:00)
[2016-11-22 21:33] LABS: ADD UMIC YES; URINE BILIRUBIN (Dip) NEGATIVE (NEGATIVE); URINE BLOOD (Dip) 3+ (NEGATIVE); URINE COLOR LT. YELLOW (YELLOW); URINE KETONES (Dip) NEGATIVE (NEGATIVE); URINE LEUKOCYTE ESTERASE (Dip) NEGATIVE (NEGATIVE); URINE NITRITE (Dip) NEGATIVE (NEGATIVE); URINE TOTAL PROTEIN (Dip) TRACE (NEGATIVE); URINE UROBILINOGEN (Dip) 0.2 E.U./dL (0.1-1.0)
[2016-11-22 21:40] LABS: BACTERIA,URINE MODERATE; SQUAMOUS EPITHELIAL CELL,UR FEW; URINE RBCS 0-2 /HPF (0)
[2016-11-22] MEDS: APIXABAN 5 MG TABLET PO SCH (21:52)
[2016-11-22 23:30] LABS: CK-MB 10.2 ng/ml (0.0-2.4)
[2016-11-22 23:46] VITALS: BP 98/36; PULSE 68; RESP 22
[2016-11-22 23:46] LABS: TROPONIN-I 4.12 ng/ml (0.00-0.12)
[2016-11-23] VITALS (19 sets, daily range): BP systolic 106–157; BP diastolic 48–61; PULSE 69–76; RESP 16–30
[2016-11-23] MEDS: ACCUCHECK XX SCH ×9 (01:00→09:31)
[2016-11-23] MEDS: CEFEPIME 1GM/50 ML (PMX) 50 ML IVPB SCH ×2 (02:12→21:06)
[2016-11-23] MEDS: PANTOPRAZOLE 40 MG INJ IV SCH (05:23)
[2016-11-23] MEDS: FUROSEMIDE 40 MG INJ IV SCH ×2 (05:24→17:24)
[2016-11-23 05:30] LABS: BASOPHILS % 0.2 % (0.0-2.0); HEMATOCRIT 30.8 % (37.0-47.0); HEMOGLOBIN 10.7 g/dl (12.0-16.0); LYMPHOCYTES # 1.4 10^3/ul (0.8-2.9); LYMPHOCYTES % 10.9 % (15.0-51.0); MEAN CORPUSCULAR HEMOGLOBIN 31.6 pg (29.0-33.0); MEAN CORPUSCULAR HGB CONC 34.7 g/dl (32.0-37.0); MEAN CORPUSCULAR VOLUME 91.2 fl (82.0-101.0); MEAN PLATELET VOLUME 8.1 fl (7.4-10.4); MONOCYTE # 0.8 10^3/ul (0.3-0.9); MONOCYTES % 6.2 % (0.0-11.0); NEUTROPHIL # 10.6 10^3/ul (1.6-7.5); NEUTROPHILS % 82.7 % (39.0-77.0); PLATELET COUNT 126 10^3/UL (140-440); RED BLOOD COUNT 3.37 10^6/ul (4.20-5.40); RED CELL DISTRIBUTION WIDTH 13.5 % (11.5-14.5); UNCORRECTED WBC 12.8 10^3/ul (4.8-10.8); WHITE BLOOD COUNT 12.8 10^3/ul (4.8-10.8)
[2016-11-23 05:38] LABS: CONDITION 1
[2016-11-23 05:54] LABS: POTASSIUM 4.2 mmol/L (3.5-5.1)
[2016-11-23 05:56] LABS: CHOL/HDL RATIO 4.4 RATIO
[2016-11-23 05:57] LABS: CREATININE 2.16 mg/dl (0.44-1.00)
[2016-11-23 05:58] LABS: MAGNESIUM 1.9 mg/dl (1.7-2.5); PHOSPHORUS 4.3 mg/dl (2.5-4.9)
[2016-11-23] MEDS ORDERED: PANTOPRAZOLE (EC) 40 MG TAB PO SCH (06:00)
[2016-11-23 08:37] LABS: THYROID STIMULATING HORMONE 0.429 MIU/L (0.465-4.680)
[2016-11-23] MEDS ORDERED: ASPIRIN (EC) 325 MG TAB PO SCH (09:00)
[2016-11-23] MEDS ORDERED: DEXTROSE 50% 50 ML SYRINGE IV PRN ×2 (10:00)
[2016-11-23] MEDS ORDERED: GLUCOSE GEL 15 GRAM TUBE BUCCAL PRN (10:00)
[2016-11-23] MEDS ORDERED: GLUCOSE GEL 15 GRAM TUBE PO PRN ×2 (10:00)
[2016-11-23] MEDS ORDERED: GLUCAGON 1 MG INJ IM PRN (10:00)
--- NOTE | 2016-11-23 10:39 | RADRPT ---
Echocardiogram Report Patient Name: DENNIS STEVENS Gender: Female Date: 1930 Study Date: 23-Nov-2016 Delivery Room Clerk: Yasmeen Ruiz RDCS Location: 118 Ref. Physician: LUIZA PENA Quality: Technically Difficult Study Procedures: Transthoracic echocardiogram with complete 2D, M-Mode, and doppler examination. Indications: Chest Pain. 2D/M Mode Doppler Measurement Value Normal Ranges Measurement Value Normal Ranges LVIDd 2D 5.3 3.5 - 5.6 cm HEMALATHA Vmax 1.0 cm2 LVIDs 2D 4.8 2.1 - 4.1 cm HEMALATHA VTI 1.0 cm2 LVPWd 2D 0.9 0.6 - 1.1 cm AV Mean Gilberto 1.7 m/sec IVSd 2D 0.8 0.6 - 1.1 cm AV Mean PG 13.0 mmHg AoR Diam 2D 2.5 2.0 - 3.7 cm AV Peak Gilberto 2.4 m/sec EDV 2D 136.7 cm3 AV Peak PG 23.0 mmHg ESV 2D 109.7 cm3 AV VTI 47.6 cm LA Dimen 2D 3.8 2.3 - 4.0 cm LVOT Mean Gilberto 0.6 m/sec LVOT Diam 1.9 cm LVOT Mean PG 1.8 mmHg LVOT Peak Gilberto 0.9 m/sec LVOT Peak PG 3.2 mmHg LVOT VTI 19.1 cm TR Peak Gilberto 3.5 m/sec TR Peak PG 48.3 mmHg RVSP 63.0 mmHg Findings Left Ventricle: Normal left ventricular cavity size. Normal left ventricular wall thickness. Moderate global left ventricular systolic dysfunction. Ejection fraction is visually estimated at 30 %. Resting Segmental Wall Motion Analysis: Abnormal septal motion consistent with known cardiac surgery. Severe hypokinesis of the inferolateral wall, otherwise global hypokinesis. Right Ventricle: Pacemaker right heart. Left Atrium: There is moderate enlargement of left atrium. Right Atrium: The right atrium is normal in size. Mitral Valve: Mitral valve leaflets appear mildly thickened. Mild mitral annular calcification. Mild mitral valve regurgitation. Aortic Valve: Mild aortic stenosis. Aortic valve Max velocity 2.40 m/sec. Max PG 23.00 mmHg. Mean PG 13.00 mmHg. Aortic valve area 1.10 cm2. Aortic sclerosis without stenosis. Aortic cusps appear mildly calcified. Tricuspid Valve: Normal appearance of the tricuspid valve. Estimated peak PA systolic pressure 63 mmHg. There is moderate tricuspid regurgitation. Pulmonic Valve: Pulmonic valve not well visualized. Pericardium: Normal pericardium with no significant pericardial effusion. Aorta: Normal aortic root. IVC: Dilated IVC without respiratory collapse consistent with elevated right atrial pressure. Conclusions 1.Normal left ventricular cavity size. Normal left ventricular wall thickness. Moderate global left ventricular systolic dysfunction. Ejection fraction is visually estimated at 30 %. Abnormal septal motion consistent with known cardiac surgery. Severe hypokinesis of the inferolateral wall, otherwise global hypokinesis. 2.Mild aortic stenosis. Aortic valve Max velocity 2.40 m/sec. Max PG 23.00 mmHg. Mean PG 13.00 mmHg. Aortic valve area 1.10 cm2. 3.Moderate tricuspid regurgitation. 4.Estimated peak PA systolic pressure 63 mmHg based on RA pressure of 15 mmHg. Electronically Signed By: Dontae Monroy 23-Nov-2016 10:37:54 -0800 Patient Name: DENNIS STEVENS Study Date: 23-Nov-2016 [id number]
[2016-11-23] MEDS: APIXABAN 5 MG TABLET PO SCH (11:06)
[2016-11-23] MEDS: ASPIRIN 81 MG TAB PO SCH (11:06)
[2016-11-23] MEDS: EZETIMIBE 10 MG TAB PO SCH (11:06)
[2016-11-23] MEDS: FISH OIL 1,000 MG CAP PO SCH (11:06)
[2016-11-23] MEDS ORDERED: INSULIN ASPART [NOVOLOG] 3 ML PEN SC SCH (11:30)
[2016-11-23] MEDS: INSULIN ASPART [NOVOLOG] 3 ML PEN SC SCH ×3 (11:35→21:00)
--- NOTE | 2016-11-23 11:40 | CONS ---
Date/Time of Note Date/Time of Note DATE: 11/23/16 TIME: 11:27 Assessment/Plan Assessment/Plan Chief Complaint/Hosp Course Acute respiratory distress: In decompensated heart failure by exam and CXR. 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 Decompensated by exam but improving NSTEMI: Likely type II in setting of ADHF but trop now significantly elevated to 4. Would recommend cardiac cath as per family she has not had one since her CABG. However considering her renal function, I had a discussion with the daughter and she prefers to continue medical management for now. As the pt is asymptomatic, I think this is reasonable for the time being. Acute on chronic renal failure: likely from above. Stable with diuresis Lactic acidosis Paroxysmal afib CAD s/p CABG BiV ICD -continue lasix 40mg IV BID -ASA 81mg daily -statin -hold Eliquis in case family is agreeable to cath over the next few days (will probably need at least 48 hours to wear off in setting of CKD) -continue coreg, isordil/hydralazine -continue digoxin (level slightly high but ok for now) -trend trops -no heparin as already anticoagulated Problems: Consultation Date/Type/Reason Admit Date/Time Nov 22, 2016 at 16:41 Initial Consult Date 11/22/16 Type of Consultation: Cardiology Referring Provider: LUIZA PENA 24 HR Interval Summary Free Text/Dictation No o/n events. Making good amount of urine. Still with SOB. No chest pain. Per daughter, pt had some blood tinged sputum yesterday but none today. Exam/Review of Systems Vital Signs Vitals Vital Signs Date Time Temp Pulse Resp B/P Pulse Ox O2 Delivery O2 Flow Rate FiO2 11/23/16 10:00 70 22 157/54 100 Nasal Cannula 3.0 11/23/16 08:00 97.6 Intake and Output 11/22/16 11/22/16 11/23/16 15:00 23:00 07:00 Intake Total 375 ml Output Total 415 ml Balance -40 ml Exam Constitutional: alert Psych: no complaints Head: atraumatic, normocephalic Neck: jvd (10cm) Respiratory: congested cough, crackles/rales, No clear to auscultation Cardiovascular: edema (1+), regular rate and rhythm, systolic murmur (2/6 AURA) Gastrointestinal: non-tender, soft Extremities: normal pulses Neurological: nl mental status, nl speech Results Result Diagram: 11/23/1641911/23/16 0420 Results 24 hrs Laboratory Tests Test 11/22/16 15:00 11/22/16 15:05 11/22/16 17:04 11/22/16 18:28 Free Thyroxine 1.30 Hemoglobin A1c 8.9 H Phosphorus Level 3.3 Activated Partial Thromboplast Time 34.4 Alanine Aminotransferase (ALT/SGPT) 113 H Albumin 4.0 Albumin/Globulin Ratio 1.29 Alkaline Phosphatase 99 Anion Gap 24 H Aspartate Amino Transf (AST/SGOT) 260 H Basophils # 0.0 Basophils % 0.1 Blood Urea Nitrogen 49 H Calcium Level 9.3 Carbon Dioxide Level 17 L Chloride Level 104 Creatinine 2.07 H Direct Bilirubin 0.30 H Eosinophils # 0.0 Eosinophils % 0.1 Globulin 3.10 Glucose Level 453 *H Hematocrit 33.9 L Hemoglobin 11.7 #L INR International Normalized Ratio 1.90 Indirect Bilirubin 0.6 Lactic Acid Level 3.8 H Lymphocytes # 0.6 L Lymphocytes % 6.5 L Mean Corpuscular Hemoglobin 31.1 Mean Corpuscular Hemoglobin Concent 34.4 Mean Corpuscular Volume 90.4 Mean Platelet Volume 7.9 Monocytes # 0.5 Monocytes % 5.8 Neutrophils # 8.0 H Neutrophils % 87.5 H Nucleated Red Blood Cells # 0.0 Nucleated Red Blood Cells % 0.0 Platelet Count 151 # Potassium Level 5.0 Prothrombin Time 22.0 H Prothrombin Time Ratio 1.7 Red Blood Count 3.75 L Red Cell Distribution Width 13.4 Sodium Level 140 Total Bilirubin 0.9 Total Protein 7.1 Troponin I 0.739 *H White Blood Count 9.1 # Arterial Blood HCO3 18.8 L Arterial Blood Base Excess -4.0 L Arterial Blood Oxygen Saturation 97.0 Paul Test ACCEPTAB Arterial Blood Gas Puncture Site Right Radial Arterial Blood Carboxyhemoglobin 0.1 Arterial Blood Date Drawn 11/22/2016 5:22:56 PM Arterial Blood Methemoglobin 0.3 Arterial Blood pCO2 (Temp correct) 28.0 L Arterial Blood pH (Temp corrected) 7.446 Arterial Blood pO2 (Temp corrected) 95.1 H Blood Gas A-a O2 Differential 107.5 H Blood Gas Modality NASAL CANNULA Blood Gas Notified Time 11/22/2016 5:28:20 PM Blood Gas Notified Whom MDA Blood Gas Specimen Source Blood arterial Blood Gas Temperature 37.0 FiO2 33.0 Oxyhemoglobin Percent 96.6 Total Hemoglobin 12.3 Bedside Glucose 224 H Test 11/22/16 19:25 11/22/16 19:55 11/22/16 21:00 11/22/16 21:10 Anion Gap 21 H Blood Urea Nitrogen 51 H Calcium Level 9.5 Carbon Dioxide Level 20 L Chloride Level 106 Creatine Kinase 1151 H Creatine Kinase Index 0.8 Creatinine 2.05 H Creatinine Kinase MB (Mass) 8.83 H Fasting Glucose 190 H Glucose Level 190 # Lactic Acid Level 2.3 H 1.8 Potassium Level 4.0 Sodium Level 143 Troponin I 3.040 *H Bedside Glucose 180 Urine Bacteria MODERATE Urine Bilirubin NEGATIVE Urine Clarity HAZY Urine Color LT. YELLOW Urine Glucose 0.1% H Urine Hemoglobin 3+ H Urine Ketones NEGATIVE Urine Leukocyte Esterase NEGATIVE Urine Microscopic RBC 0-2 Urine Microscopic WBC 0-2 Urine Nitrite NEGATIVE Urine Osmolality 370 Urine Random Sodium 50 Urine Specific [place] 1.020 Urine Squamous Epithelial Cells FEW Urine Total Protein TRACE Urine Urobilinogen 0.2 E.U./dL Urine pH 5.0 Test 11/22/16 21:57 11/22/16 23:00 11/22/16 23:54 11/23/16 01:22 Bedside Glucose 160 151 Creatine Kinase 1543 H Creatine Kinase Index 0.7 Creatinine Kinase MB (Mass) 10.20 H Lactic Acid Level 1.3 1.3 Troponin I 4.120 *H Test 11/23/16 04:20 11/23/16 09:49 Anion Gap 19 H Basophils # 0.0 Basophils % 0.2 Blood Urea Nitrogen 53 H Calcium Level 9.0 Carbon Dioxide Level 22 Chloride Level 108 Cholesterol Level 147 Cholesterol/HDL Ratio 4.4 Creatinine 2.16 H Digoxin Level 1.5 Eosinophils # 0.0 Eosinophils % 0.0 Glucose Level 158 HDL Cholesterol 33 Hematocrit 30.8 L Hemoglobin 10.7 L Hemoglobin A1c 8.7 H LDL Cholesterol, Calculated 85 Lactic Acid Level 1.3 Lymphocytes # 1.4 Lymphocytes % 10.9 L Magnesium Level 1.9 Mean Corpuscular Hemoglobin 31.6 Mean Corpuscular Hemoglobin Concent 34.7 Mean Corpuscular Volume 91.2 Mean Platelet Volume 8.1 Monocytes # 0.8 Monocytes % 6.2 Neutrophils # 10.6 H Neutrophils % 82.7 H Nucleated Red Blood Cells # 0.0 Nucleated Red Blood Cells % 0.0 Phosphorus Level 4.3 Platelet Count 126 L Potassium Level 4.2 Red Blood Count 3.37 L Red Cell Distribution Width 13.5 Sodium Level 145 H Thyroid Stimulating Hormone (TSH) 0.429 L Triglycerides Level 145 White Blood Count 12.8 #H Bedside Glucose 144 Medications Medications Current Medications Ondansetron HCl (Zofran Inj) 4 mg Q6H PRN IV NAUSEA AND/OR VOMITING; Start at 17:00 Acetaminophen (Tylenol Tab) 650 mg Q6H PRN PO PAIN LEVEL 1-3 OR FEVER; Start at 17:00 Acetaminophen/ Hydrocodone Bitart ([place] (5/325)) 1 tab Q6H PRN PO MODERATE PAIN LEVEL 4-6; Start 11/22/16 at 17:00 Morphine Sulfate (morphine) 2 mg Q4H PRN IV SEVERE PAIN LEVEL 7-10; Start 11/22 at 17:00 Docusate Sodium (Colace) 100 mg Q12H PRN PO CONSTIPATION; Start 11/22/16 at 17: 00 Magnesium Hydroxide (Milk Of Mag) 30 ml DAILY PRN PO CONSTIPATION; Start at 17:00 Sodium Biphosphate/ Sodium Phosphate (Fleet Enema) 133 ml DAILY PRN ND CONSTIPATION; Start 11/22/16 at 17:00 Pantoprazole (Protonix Iv) 40 mg DAILY@06 IV Last administered on 11/23/16t 05: 23; Admin Dose 40 MG; Start 11/23/16 at 06:00 Lorazepam (Ativan) 0.5 mg Q6H PRN IV ANXIETY; Start 11/22/16 at 17:00 Vancomycin HCl (Vanco Iv Per Pharmacy) VANCOMYCIN PER PHARMACY NOTE XX ; Start 11/22/16 at 17:00 Hydralazine HCl (Apresoline) 10 mg Q6H PRN IV ELEVATED BLOOD PRESSURE; Start at 17:00 Nitroglycerin (Nitroglycerin (Sl Tab) 0.4 Mg) 1 tab Q5M PRN SL ANGINA; Start at 17:00 Digoxin (Digoxin) 0.125 mg DAILY@13 PO ; Start 11/23/16 at 13:00 EZETIMIBE (Zetia) 10 mg DAILY PO Last administered on 11/23/16 11:06; Admin Dose 10 MG; Start 11/23/16 at 09:00 Hydralazine HCl (Apresoline) 10 mg Q6H PO Last administered on 11/23/16 04:28 ; Admin Dose 10 MG; Start 11/22/16 at 17:00 Isosorbide Dinitrate (Isordil) 20 mg TID PO ; Start 11/22/16 at 21:00 Fish Oil 2000 mg 2,000 mg DAILY PO Last administered on 11/23/16 11:06; Admin Dose 2,000 MG; Start 11/23/16 at 09:00 Cefepime HCl (Maxipime 1gm/50 ml (Pmx)) 50 ml @ 100 mls/hr Q24H IVPB Last administered on 11/23/16 02:12; Admin Dose 100 MLS/HR; Start 11/22/16 at 21:00 Aspirin (Aspirin) 81 mg DAILY PO Last administered on 11/23/16 11:06; Admin Dose 81 MG; Start 11/23/16 at 09:00 Apixaban (Eliquis) 2.5 mg BID PO Last administered on 11/23/16 11:06; Admin Dose 2.5 MG; Start 11/22/16 at 21:00 Carvedilol (Coreg) 3.125 mg BID PO Last administered on 11/23/16 11:05; Admin Dose 3.125 MG; Start 11/22/16 at 21:00 Diagnostic Test (Pha) (Accucheck) 1 ea 02 XX ; Start 11/24/16 at 02:00 Miscellaneous Information 1 ea NOTE XX ; Start 11/23/16 at 10:00 Glucose (Glutose) 15 gm Q15M PRN PO DECREASED GLUCOSE; Start 11/23/16 at 10:00 Glucose (Glutose) 22.5 gm Q15M PRN PO DECREASED GLUCOSE; Start 11/23/16 at 10: 00 Dextrose (D50w Syringe) 25 ml Q15M PRN IV DECREASED GLUCOSE; Start 11/23/16 at 10:00 Dextrose (D50w Syringe) 50 ml Q15M PRN IV DECREASED GLUCOSE; Start 11/23/16 at 10:00 Glucagon (Glucagen) 1 mg Q15M PRN IM DECREASED GLUCOSE; Start 11/23/16 at 10:00 Glucose (Glutose) 15 gm Q15M PRN BUCCAL DECREASED GLUCOSE; Start 11/23/16 at 10 :00 GREG CAZARES Nov 23, 2016 11:40
--- NOTE | 2016-11-23 11:59 | PN ---
Date/Time of Note Date/Time of Note DATE: 11/23/16 TIME: 11:47 Assessment/Plan VTE Prophylaxis VTE Prophylaxis Intervention: SCD's Lines/Catheters IV Catheter Type (from Nrs): Saline Lock Urinary Cath still in place: Yes Reason Cath still needed: urinary retention Assessment/Plan Chief Complaint/Hosp Course ASSESSMENT AND PLAN: 86-year-old female coming in with respiratory distress, most likely secondary to combination of congestive heart failure exacerbation and pneumonia, also signs of non-ST elevation myocardial infarction, lactic acidosis and acute on chronic renal failure. 1. Respiratory distress - slowly improving, sec likely to congestive heart failure. Also prior hx of CAD, status post CABG; history of AICD as well. - continue lasix, f/u cardiology consult rec's - Continue digoxin and Zetia medicines. f/u TSH, A1c, lipid panel. - Continue Isordil, low dose BB as well. - continue broad spectrum antibiotics, cefepime and vancomycin for now. Monitor ins and outs. 2. Elevated troponins - type II setting NSTEMI. Again, pt also has prior hx of CAD, status post CABG; history of AICD as well. - continue to trend her troponins. - continue aspirin and statin as well. - continue medical management for now - may need LHC in 2 days when cr improved. 3. Acute on chronic renal failure. Again, continue to monitor for now. Cr still elevated. - f/u renal consult as well. 4. Lactic acidosis - impoved. - Monitor lactic acid for now. Holding off on IV fluids given her heart failure. 5. History of paroxysmal atrial fibrillation - holding Eliquis in anticipation of possible LHC in 2 days. 6. History of type 2 diabetes. A1c = 8.7 - continue sliding scale insulin 7. Rheumatoid arthritis. Continue to monitor for now. 8. Gastrointestinal prophylaxis - PPI. 9. Deep venous thrombosis prophylaxis. SCDs. Problems: Subjective 24 Hr Interval Summary Free Text/Dictation Pt seen by CV team, no acute events overnight. ST eval as well. Exam/Review of Systems Vital Signs Vitals Vital Signs Date Time Temp Pulse Resp B/P Pulse Ox O2 Delivery O2 Flow Rate FiO2 11/23/16 10:00 70 22 157/54 100 Nasal Cannula 3.0 11/23/16 08:00 97.6 Intake and Output 11/22/16 11/22/16 11/23/16 15:00 23:00 07:00 Intake Total 375 ml Output Total 415 ml Balance -40 ml Exam GENERAL: more alert, opens eyes. HEENT: Pupils equal, round, react to light. Extraocular muscles intact. NECK: Supple. No thyromegaly. LUNGS: less positive crackles and rales heard at the bases bilaterally. No wheezes. CARDIOVASCULAR: S1 and S2 heard. There is a III/ systolic murmur heard best at left sternal border, otherwise regular rate and rhythm. ABDOMEN: Soft, nontender, nondistended. Normal bowel sounds. No rebound or guarding. MUSCULOSKELETAL: 1+ pitting edema, bilateral lower extremities to mid calves. NEUROLOGIC: No focal deficits. Results Result Diagram: 11/23/1641911/23/16419 Results 24 hrs Laboratory Tests Test 11/22/16 15:00 11/22/16 15:05 11/22/16 17:04 11/22/16 18:28 Free Thyroxine 1.30 Hemoglobin A1c 8.9 H Phosphorus Level 3.3 Activated Partial Thromboplast Time 34.4 Alanine Aminotransferase (ALT/SGPT) 113 H Albumin 4.0 Albumin/Globulin Ratio 1.29 Alkaline Phosphatase 99 Anion Gap 24 H Aspartate Amino Transf (AST/SGOT) 260 H Basophils # 0.0 Basophils % 0.1 Blood Urea Nitrogen 49 H Calcium Level 9.3 Carbon Dioxide Level 17 L Chloride Level 104 Creatinine 2.07 H Direct Bilirubin 0.30 H Eosinophils # 0.0 Eosinophils % 0.1 Globulin 3.10 Glucose Level 453 *H Hematocrit 33.9 L Hemoglobin 11.7 #L INR International Normalized Ratio 1.90 Indirect Bilirubin 0.6 Lactic Acid Level 3.8 H Lymphocytes # 0.6 L Lymphocytes % 6.5 L Mean Corpuscular Hemoglobin 31.1 Mean Corpuscular Hemoglobin Concent 34.4 Mean Corpuscular Volume 90.4 Mean Platelet Volume 7.9 Monocytes # 0.5 Monocytes % 5.8 Neutrophils # 8.0 H Neutrophils % 87.5 H Nucleated Red Blood Cells # 0.0 Nucleated Red Blood Cells % 0.0 Platelet Count 151 # Potassium Level 5.0 Prothrombin Time 22.0 H Prothrombin Time Ratio 1.7 Red Blood Count 3.75 L Red Cell Distribution Width 13.4 Sodium Level 140 Total Bilirubin 0.9 Total Protein 7.1 Troponin I 0.739 *H White Blood Count 9.1 # Arterial Blood HCO3 18.8 L Arterial Blood Base Excess -4.0 L Arterial Blood Oxygen Saturation 97.0 Paul Test ACCEPTAB Arterial Blood Gas Puncture Site Right Radial Arterial Blood Carboxyhemoglobin 0.1 Arterial Blood Date Drawn 11/22/2016 5:22:56 PM Arterial Blood Methemoglobin 0.3 Arterial Blood pCO2 (Temp correct) 28.0 L Arterial Blood pH (Temp corrected) 7.446 Arterial Blood pO2 (Temp corrected) 95.1 H Blood Gas A-a O2 Differential 107.5 H Blood Gas Modality NASAL CANNULA Blood Gas Notified Time 11/22/2016 5:28:20 PM Blood Gas Notified Whom MDA Blood Gas Specimen Source Blood arterial Blood Gas Temperature 37.0 FiO2 33.0 Oxyhemoglobin Percent 96.6 Total Hemoglobin 12.3 Bedside Glucose 224 H Test 11/22/16 19:25 11/22/16 19:55 11/22/16 21:00 11/22/16 21:10 Anion Gap 21 H Blood Urea Nitrogen 51 H Calcium Level 9.5 Carbon Dioxide Level 20 L Chloride Level 106 Creatine Kinase 1151 H Creatine Kinase Index 0.8 Creatinine 2.05 H Creatinine Kinase MB (Mass) 8.83 H Fasting Glucose 190 H Glucose Level 190 # Lactic Acid Level 2.3 H 1.8 Potassium Level 4.0 Sodium Level 143 Troponin I 3.040 *H Bedside Glucose 180 Urine Bacteria MODERATE Urine Bilirubin NEGATIVE Urine Clarity HAZY Urine Color LT. YELLOW Urine Glucose 0.1% H Urine Hemoglobin 3+ H Urine Ketones NEGATIVE Urine Leukocyte Esterase NEGATIVE Urine Microscopic RBC 0-2 Urine Microscopic WBC 0-2 Urine Nitrite NEGATIVE Urine Osmolality 370 Urine Random Sodium 50 Urine Specific [place] 1.020 Urine Squamous Epithelial Cells FEW Urine Total Protein TRACE Urine Urobilinogen 0.2 E.U./dL Urine pH 5.0 Test 11/22/16 21:57 11/22/16 23:00 11/22/16 23:54 11/23/16 01:22 Bedside Glucose 160 151 Creatine Kinase 1543 H Creatine Kinase Index 0.7 Creatinine Kinase MB (Mass) 10.20 H Lactic Acid Level 1.3 1.3 Troponin I 4.120 *H Test 11/23/16 04:20 11/23/16 09:49 11/23/16 11:16 Anion Gap 19 H Basophils # 0.0 Basophils % 0.2 Blood Urea Nitrogen 53 H Calcium Level 9.0 Carbon Dioxide Level 22 Chloride Level 108 Cholesterol Level 147 Cholesterol/HDL Ratio 4.4 Creatinine 2.16 H Digoxin Level 1.5 Eosinophils # 0.0 Eosinophils % 0.0 Glucose Level 158 HDL Cholesterol 33 Hematocrit 30.8 L Hemoglobin 10.7 L Hemoglobin A1c 8.7 H LDL Cholesterol, Calculated 85 Lactic Acid Level 1.3 Lymphocytes # 1.4 Lymphocytes % 10.9 L Magnesium Level 1.9 Mean Corpuscular Hemoglobin 31.6 Mean Corpuscular Hemoglobin Concent 34.7 Mean Corpuscular Volume 91.2 Mean Platelet Volume 8.1 Monocytes # 0.8 Monocytes % 6.2 Neutrophils # 10.6 H Neutrophils % 82.7 H Nucleated Red Blood Cells # 0.0 Nucleated Red Blood Cells % 0.0 Phosphorus Level 4.3 Platelet Count 126 L Potassium Level 4.2 Red Blood Count 3.37 L Red Cell Distribution Width 13.5 Sodium Level 145 H Thyroid Stimulating Hormone (TSH) 0.429 L Triglycerides Level 145 White Blood Count 12.8 #H Bedside Glucose 144 212 Medications Medications Current Medications Ondansetron HCl (Zofran Inj) 4 mg Q6H PRN IV NAUSEA AND/OR VOMITING; Start at 17:00 Acetaminophen (Tylenol Tab) 650 mg Q6H PRN PO PAIN LEVEL 1-3 OR FEVER; Start at 17:00 Acetaminophen/ Hydrocodone Bitart ([place] (5/325)) 1 tab Q6H PRN PO MODERATE PAIN LEVEL 4-6; Start 11/22/16 at 17:00 Morphine Sulfate (morphine) 2 mg Q4H PRN IV SEVERE PAIN LEVEL 7-10; Start 11/22 at 17:00 Docusate Sodium (Colace) 100 mg Q12H PRN PO CONSTIPATION; Start 11/22/16 at 17: 00 Magnesium Hydroxide (Milk Of Mag) 30 ml DAILY PRN PO CONSTIPATION; Start at 17:00 Sodium Biphosphate/ Sodium Phosphate (Fleet Enema) 133 ml DAILY PRN [place] CONSTIPATION; Start 11/22/16 at 17:00 Pantoprazole (Protonix Iv) 40 mg DAILY@06 IV Last administered on 11/23/16t 05: 23; Admin Dose 40 MG; Start 11/23/16 at 06:00 Lorazepam (Ativan) 0.5 mg Q6H PRN IV ANXIETY; Start 11/22/16 at 17:00 Vancomycin HCl (Vanco Iv Per Pharmacy) VANCOMYCIN PER PHARMACY NOTE XX ; Start 11/22/16 at 17:00 Hydralazine HCl (Apresoline) 10 mg Q6H PRN IV ELEVATED BLOOD PRESSURE; Start at 17:00 Nitroglycerin (Nitroglycerin (Sl Tab) 0.4 Mg) 1 tab Q5M PRN SL ANGINA; Start at 17:00 Digoxin (Digoxin) 0.125 mg DAILY@13 PO ; Start 11/23/16 at 13:00 EZETIMIBE (Zetia) 10 mg DAILY PO Last administered on 11/23/16 11:06; Admin Dose 10 MG; Start 11/23/16 at 09:00 Hydralazine HCl (Apresoline) 10 mg Q6H PO Last administered on 11/23/16 11:31 ; Admin Dose 10 MG; Start 11/22/16 at 17:00 Isosorbide Dinitrate (Isordil) 20 mg TID PO ; Start 11/22/16 at 21:00 Fish Oil 2000 mg 2,000 mg DAILY PO Last administered on 11/23/16 11:06; Admin Dose 2,000 MG; Start 11/23/16 at 09:00 Cefepime HCl (Maxipime 1gm/50 ml (Pmx)) 50 ml @ 100 mls/hr Q24H IVPB Last administered on 11/23/16 02:12; Admin Dose 100 MLS/HR; Start 11/22/16 at 21:00 Aspirin (Aspirin) 81 mg DAILY PO Last administered on 11/23/16 11:06; Admin Dose 81 MG; Start 11/23/16 at 09:00 Carvedilol (Coreg) 3.125 mg BID PO Last administered on 11/23/16 11:05; Admin Dose 3.125 MG; Start 11/22/16 at 21:00 Diagnostic Test (Pha) (Accucheck) 1 ea 02 XX ; Start 11/24/16 at 02:00 Miscellaneous Information 1 ea NOTE XX ; Start 11/23/16 at 10:00 Glucose (Glutose) 15 gm Q15M PRN PO DECREASED GLUCOSE; Start 11/23/16 at 10:00 Glucose (Glutose) 22.5 gm Q15M PRN PO DECREASED GLUCOSE; Start 11/23/16 at 10: 00 Dextrose (D50w Syringe) 25 ml Q15M PRN IV DECREASED GLUCOSE; Start 11/23/16 at 10:00 Dextrose (D50w Syringe) 50 ml Q15M PRN IV DECREASED GLUCOSE; Start 11/23/16 at 10:00 Glucagon (Glucagen) 1 mg Q15M PRN IM DECREASED GLUCOSE; Start 11/23/16 at 10:00 Glucose (Glutose) 15 gm Q15M PRN BUCCAL DECREASED GLUCOSE; Start 11/23/16 at 10 :00 Procedures Procedures 2D ECHO (11/22/16): Conclusions 1. Normal left ventricular cavity size. Normal left ventricular wall thickness. Moderate global left ventricular systolic dysfunction. Ejection fraction is visually estimated at 30 %. Abnormal septal motion consistent with known cardiac surgery. Severe hypokinesis of the inferolateral wall, otherwise global hypokinesis. 2. Mild aortic stenosis. Aortic valve Max velocity 2.40 m/sec. Max PG 23.00 mmHg. Mean PG 13.00 mmHg. Aortic valve area 1.10 cm2. 3. Moderate tricuspid regurgitation. 4. Estimated peak PA systolic pressure 63 mmHg based on RA pressure of 15 mmHg. LUIZA PENA Nov 23, 2016 11:58
[2016-11-23] MEDS: ISOSORBIDE DINITRATE 20 MG TAB PO SCH ×3 (12:36→21:06)
[2016-11-23] MEDS: DIGOXIN 0.125 MG TAB PO SCH (13:55)
[2016-11-23] MEDS: HYDROCODONE/APAP (5/325) TAB PO PRN (15:04)
--- NOTE | 2016-11-23 19:47 | CONS ---
DATE OF ADMISSION: 11/22/2016 DATE OF CONSULTATION: Dear Dr. Pena: HISTORY OF PRESENT ILLNESS: Thank you for asking me to participate in the care of this 86-year-old Pakistani female who has been known to have history of coronary artery disease and coronary artery by pass. She has also a known diabetic, has been in atrial fibrillation, and has a known diagnosis of CKD, rheumatoid arthritis, hypertension, and has been on multiple medications including Eliquis, dig oxin, Zetia, hydralazine, Imdur, Lovaza, amitriptyline, aspirin, ____, Lasix, potassium, Dexilant, g lyburide, Lantus insulin, vitamin D, allopurinol, and some other p.r.n. medications such as Benadryl . The patient was brought to the emergency with symptoms of cold that were not getting better. The nancy menon has been since found to have pneumonia and has been placed in the ICU. Lab work has shown elevated BUN and creatinine. Nephrology consultation therefore kindly requested. Please refer to the hospital record for further details. Additional information available at this time includes white count 9.1 going up to 12.8, hematocrit has dropped from 34 to 31%. Admission BUN was 51, creatinine is 2.01 and later is 53 and 2.16. Pot assium is ___. The calcium, phosphorous, magnesium are normal. The patient had a lactic acid that was up to 3 and is now 1.3 at the time of this dictation. Other studies have included chest x-ray, which as mentioned, shows congestive heart failure, cardiomegaly. Her current treatment includes IV antibiotics and insulin coverage, morphine, Zofran, and Ativan. She has also been started on vanco mycin and already been seen by the pattern generator operator. Intake and output records reveal that the patient has had adequate urine volume up until this time. REVIEW OF SYSTEMS: Rest of the system review is poorly elicited. The patient's daughter is at [facility], since she speaks Pakistani only, further information is only obtained from the daughter. There has been no fever or chills. No acute chest pain, hemoptysis. No acute abdominal pain. No bleedin g from any source. The patient has not been exposed to any other nephrotoxic agents. The rest of t he system is poorly elicited. According to the information, the patient has had history of gout and coronary artery bypass and AICD placement. She has been cared for by her daughter who is at the [facility]. PHYSICAL EXAMINATION: GENERAL: Reveals the patient to be elderly female who appears awake, alert and in some mild acute d istress. VITAL SIGNS: Blood pressure had been stable in the 110 to 120 range systolic, heart rate is 70, te mperature 97.7, respiration is slightly labored at 20. HEAD, EAR, NOSE, AND THROAT: Unremarkable. EYES: Pale conjunctivae. Sclerae are anicteric. NOSE: Normal mucosa. THROAT: Pharyngeal congestion is present. NECK: JVD is not present. No lymph or thyroid present. CHEST: Occasional rhonchi at bases. HEART: Irregular rhythm noted. CHEST WALL: Midline surgical scar well healed. ABDOMEN: Flat, soft. No masses. GENITALIA: Not examined. Vega catheter is in place, draining urine. EXTREMITIES: No cyanosis, clubbing, edema. SKIN: Unremarkable. IMPRESSION 1. History of coronary artery disease, status post coronary artery bypass, automatic implantable ca rdioverter defibrillator. 2. Probably congestive heart failure. 3. Rule out pneumonia with sepsis, improving. 4. Kidney disease, probably chronic, may be due to nephrosclerosis. Based on the laboratory information available, a urinalysis does show hemoglobin and there is trace protein, leukocyte esterase is negative. The possibility of underlying chronic kidney disease likel y, given the multiple stigmata of nephrosclerosis the patient is carrying. At this time, however, the patient has good urinary output and, therefore, I would tread cautiously with more IV fluids, especially since the patient's chest x-ray shows congestion. According to the pattern generator operator, Lasix has been given. Echocardiogram results are pending. The patient's intake, outp ut, blood chemistries will be monitored closely. Echocardiogram shows ejection fraction of 30%. I am hoping that the patient's condition will stabilize and we can discharge her to the medical floor. Dictated By: CHELSEA RIZO/SHWETA Conf#: [id number] DID#: [id number] CC: LUIZA PENA;*EndCC*
[2016-11-24] VITALS (13 sets, daily range): BP systolic 98–154; BP diastolic 51–72; PULSE 66–72; RESP 16–20
[2016-11-24 00:33] LABS: ADD UMIC YES; URINE BILIRUBIN (Dip) NEGATIVE (NEGATIVE); URINE BLOOD (Dip) 2+ (NEGATIVE); URINE COLOR LT. YELLOW (YELLOW); URINE GLUCOSE (Dip) NEGATIVE (NEGATIVE); URINE KETONES (Dip) NEGATIVE (NEGATIVE); URINE LEUKOCYTE ESTERASE (Dip) NEGATIVE (NEGATIVE); URINE NITRITE (Dip) NEGATIVE (NEGATIVE); URINE TOTAL PROTEIN (Dip) NEGATIVE (NEGATIVE); URINE UROBILINOGEN (Dip) 0.2 E.U./dL (0.1-1.0)
[2016-11-24 00:46] LABS: BACTERIA,URINE FEW; SQUAMOUS EPITHELIAL CELL,UR FEW; URINE RBCS 25-50 /HPF (0)
[2016-11-24] MEDS: ACCUCHECK XX SCH (02:00)
[2016-11-24] MEDS ORDERED: ACCUCHECK XX SCH (02:00)
[2016-11-24] MEDS: FUROSEMIDE 40 MG INJ IV SCH ×2 (05:58→17:27)
[2016-11-24] MEDS: PANTOPRAZOLE 40 MG INJ IV SCH (05:59)
[2016-11-24] MEDS: INSULIN ASPART [NOVOLOG] 3 ML PEN SC SCH ×4 (07:50→21:04)
[2016-11-24 07:53] LABS: BASOPHILS % 0.5 % (0.0-2.0); EOSINOPHILS # 0.1 10^3/ul (0.0-0.5); EOSINOPHILS % 1.5 % (0.0-7.0); HEMATOCRIT 30.1 % (37.0-47.0); HEMOGLOBIN 10.1 g/dl (12.0-16.0); LYMPHOCYTES # 1.4 10^3/ul (0.8-2.9); LYMPHOCYTES % 17.2 % (15.0-51.0); MEAN CORPUSCULAR HGB CONC 33.4 g/dl (32.0-37.0); MEAN CORPUSCULAR VOLUME 92.7 fl (82.0-101.0); MEAN PLATELET VOLUME 8.6 fl (7.4-10.4); MONOCYTE # 0.5 10^3/ul (0.3-0.9); MONOCYTES % 6.3 % (0.0-11.0); NEUTROPHIL # 6.2 10^3/ul (1.6-7.5); NEUTROPHILS % 74.5 % (39.0-77.0); PLATELET COUNT 126 10^3/UL (140-440); RED BLOOD COUNT 3.25 10^6/ul (4.20-5.40); RED CELL DISTRIBUTION WIDTH 14.1 % (11.5-14.5); UNCORRECTED WBC 8.3 10^3/ul (4.8-10.8); WHITE BLOOD COUNT 8.3 10^3/ul (4.8-10.8)
[2016-11-24 08:01] LABS: POTASSIUM 3.9 mmol/L (3.5-5.1)
[2016-11-24 08:04] LABS: CREATININE 2.16 mg/dl (0.44-1.00)
[2016-11-24 08:05] LABS: CALCIUM 8.9 mg/dl (8.4-10.2)
[2016-11-24 08:15] LABS: CONDITION 1
[2016-11-24] MEDS: FISH OIL 1,000 MG CAP PO SCH (08:32)
[2016-11-24] MEDS: ASPIRIN 81 MG TAB PO SCH (08:32)
[2016-11-24] MEDS: EZETIMIBE 10 MG TAB PO SCH (08:34)
[2016-11-24] MEDS: ISOSORBIDE DINITRATE 20 MG TAB PO SCH ×3 (08:34→20:57)
[2016-11-24] MEDS: GUAIFENESIN 20 MG/ML 5ML CUP PO PRN ×2 (10:10→14:29)
--- NOTE | 2016-11-24 10:55 | PN ---
Date/Time of Note Date/Time of Note DATE: 11/24/16 TIME: 10:51 Assessment/Plan VTE Prophylaxis VTE Prophylaxis Intervention: SCD's Lines/Catheters [facility] Peripheral IV Urinary Cath still in place: Yes Reason Cath still needed: urinary retention Assessment/Plan Chief Complaint/Hosp Course ASSESSMENT AND PLAN: 86-year-old female coming in with respiratory distress, most likely secondary to combination of congestive heart failure exacerbation and pneumonia, also signs of non-ST elevation myocardial infarction, lactic acidosis and acute on chronic renal failure. 1. Respiratory distress - slowly improving, sec likely to congestive heart failure. Also prior hx of CAD, status post CABG; history of AICD as well. - continue lasix (will lower dose today per CV), f/u cardiology consult rec's - Continue digoxin, Isordil, low dose BB as well. - continue broad spectrum antibiotics, cefepime and vancomycin for now. Monitor ins and outs. 2. Elevated troponins - type II setting NSTEMI. Again, pt also has prior hx of CAD, status post CABG; history of AICD as well. - continue to trend her troponins. - continue aspirin and statin as well. - continue medical management for now - would probably benefit from [facility] although family and pt refusing this. 3. Acute on chronic renal failure. Again, continue to monitor for now. Cr still elevated. - f/u renal consult as well. 4. Lactic acidosis - improved. - Monitor lactic acid for now. Holding off on IV fluids given her heart failure. 5. History of paroxysmal atrial fibrillation - holding Eliquis, may restart in 24 hrs. 6. History of type 2 diabetes. A1c = 8.7 - continue sliding scale insulin 7. Rheumatoid arthritis. Continue to monitor for now. 8. Gastrointestinal prophylaxis - PPI. 9. Deep venous thrombosis prophylaxis. SCDs. Problems: Subjective 24 Hr Interval Summary Free Text/Dictation Pt has less SOB, seen by CV team today. + Cough, no fevers. Exam/Review of Systems Vital Signs Vitals Vital Signs Date Time Temp Pulse Resp B/P Pulse Ox O2 Delivery O2 Flow Rate FiO2 11/24/16 08:49 69 11/24/16 08:00 98.2 18 127/61 99 11/24/16 04:23 3.0 11/24/16 04:23 Nasal Cannula Intake and Output 11/23/16 11/23/16 11/24/16 15:00 23:00 07:00 Intake Total 1125 ml 320 ml 220 ml Output Total 640 ml 200 ml 750 ml Balance 485 ml 120 ml -530 ml Exam GENERAL: more alert, opens eyes, sitting in bed HEENT: Pupils equal, round, react to light. Extraocular muscles intact. NECK: Supple. No thyromegaly. LUNGS: less positive crackles and rales heard at the bases bilaterally. No wheezes. CARDIOVASCULAR: S1 and S2 heard. There is a III/ systolic murmur heard best at left sternal border, otherwise regular rate and rhythm. ABDOMEN: Soft, nontender, nondistended. Normal bowel sounds. No rebound or guarding. MUSCULOSKELETAL: trace pitting edema, bilateral lower extremities to mid calves. NEUROLOGIC: No focal deficits. Results Result Diagram: 11/24/16 0510 11/24/16 0510 Results 24 hrs Laboratory Tests Test 11/23/16 11:16 11/23/16 17:20 11/23/16 21:08 11/23/16 23:40 Bedside Glucose 212 186 163 Urine Bacteria FEW Urine Bilirubin NEGATIVE Urine Clarity HAZY Urine Color LT. YELLOW Urine Glucose NEGATIVE Urine Hemoglobin 2+ H Urine Ketones NEGATIVE Urine Leukocyte Esterase NEGATIVE Urine Microscopic RBC 25-50 Urine Microscopic WBC 0-2 Urine Nitrite NEGATIVE Urine Specific [place] 1.015 Urine Squamous Epithelial Cells FEW Urine Total Protein NEGATIVE Urine Urobilinogen 0.2 E.U./dL Urine pH 5.0 Test 11/24/16 05:10 11/24/16 07:44 Anion Gap 18 H Basophils # 0.0 Basophils % 0.5 Blood Urea Nitrogen 58 H Calcium Level 8.9 Carbon Dioxide Level 24 Chloride Level 103 Creatinine 2.16 H Eosinophils # 0.1 Eosinophils % 1.5 Glucose Level 103 # Hematocrit 30.1 L Hemoglobin 10.1 L Lymphocytes # 1.4 Lymphocytes % 17.2 Mean Corpuscular Hemoglobin 31.0 Mean Corpuscular Hemoglobin Concent 33.4 Mean Corpuscular Volume 92.7 Mean Platelet Volume 8.6 Monocytes # 0.5 Monocytes % 6.3 Neutrophils # 6.2 Neutrophils % 74.5 Nucleated Red Blood Cells # 0.0 Nucleated Red Blood Cells % 0.0 Platelet Count 126 L Potassium Level 3.9 Red Blood Count 3.25 L Red Cell Distribution Width 14.1 Sodium Level 141 Vancomycin Level Trough 13.7 White Blood Count 8.3 # Bedside Glucose 120 Medications Medications Current Medications Ondansetron HCl (Zofran Inj) 4 mg Q6H PRN IV NAUSEA AND/OR VOMITING; Start at 17:00 Acetaminophen (Tylenol Tab) 650 mg Q6H PRN PO PAIN LEVEL 1-3 OR FEVER; Start at 17:00 Acetaminophen/ Hydrocodone Bitart ([place] (5/325)) 1 tab Q6H PRN PO MODERATE PAIN LEVEL 4-6 Last administered on 11/23/16 15:04; Admin Dose 1 TAB; Start at 17:00 Morphine Sulfate (morphine) 2 mg Q4H PRN IV SEVERE PAIN LEVEL 7-10; Start 11/22 at 17:00 Docusate Sodium (Colace) 100 mg Q12H PRN PO CONSTIPATION; Start 11/22/16 at 17: 00 Magnesium Hydroxide (Milk Of Mag) 30 ml DAILY PRN PO CONSTIPATION; Start at 17:00 Sodium Biphosphate/ Sodium Phosphate (Fleet Enema) 133 ml DAILY PRN [place] CONSTIPATION; Start 11/22/16 at 17:00 Pantoprazole (Protonix Iv) 40 mg DAILY@06 IV Last administered on 11/24/16 05: 59; Admin Dose 40 MG; Start 11/23/16 at 06:00 Lorazepam (Ativan) 0.5 mg Q6H PRN IV ANXIETY; Start 11/22/16 at 17:00 Vancomycin HCl (Vanco Iv Per Pharmacy) VANCOMYCIN PER PHARMACY NOTE XX ; Start 11/22/16 at 17:00 Hydralazine HCl (Apresoline) 10 mg Q6H PRN IV ELEVATED BLOOD PRESSURE; Start at 17:00 Nitroglycerin (Nitroglycerin (Sl Tab) 0.4 Mg) 1 tab Q5M PRN SL ANGINA; Start at 17:00 Digoxin (Digoxin) 0.125 mg DAILY@13 PO Last administered on 11/23/16 13:55; Admin Dose 0.125 MG; Start 11/23/16 at 13:00 EZETIMIBE (Zetia) 10 mg DAILY PO Last administered on 11/24/16 08:34; Admin Dose 10 MG; Start 11/23/16 at 09:00 Hydralazine HCl (Apresoline) 10 mg Q6H PO Last administered on 11/24/16 05:58 ; Admin Dose 10 MG; Start 11/22/16 at 17:00 Isosorbide Dinitrate (Isordil) 20 mg TID PO Last administered on 11/24/16 08: 34; Admin Dose 20 MG; Start 11/22/16 at 21:00 Fish Oil 2000 mg 2,000 mg DAILY PO Last administered on 11/24/16 08:32; Admin Dose 2,000 MG; Start 11/23/16 at 09:00 Cefepime HCl (Maxipime 1gm/50 ml (Pmx)) 50 ml @ 100 mls/hr Q24H IVPB Last administered on 11/23/16 21:06; Admin Dose 100 MLS/HR; Start 11/22/16 at 21:00 Aspirin (Aspirin) 81 mg DAILY PO Last administered on 11/24/16 08:32; Admin Dose 81 MG; Start 11/23/16 at 09:00 Carvedilol (Coreg) 3.125 mg BID PO Last administered on 11/24/16 08:33; Admin Dose 3.125 MG; Start 11/22/16 at 21:00 Diagnostic Test (Pha) (Accucheck) 1 ea 02 XX ; Start 11/24/16 at 02:00 Miscellaneous Information 1 ea NOTE XX ; Start 11/23/16 at 10:00 Glucose (Glutose) 15 gm Q15M PRN PO DECREASED GLUCOSE; Start 11/23/16 at 10:00 Glucose (Glutose) 22.5 gm Q15M PRN PO DECREASED GLUCOSE; Start 11/23/16 at 10: 00 Dextrose (D50w Syringe) 25 ml Q15M PRN IV DECREASED GLUCOSE; Start 11/23/16 at 10:00 Dextrose (D50w Syringe) 50 ml Q15M PRN IV DECREASED GLUCOSE; Start 11/23/16 at 10:00 Glucagon (Glucagen) 1 mg Q15M PRN IM DECREASED GLUCOSE; Start 11/23/16 at 10:00 Glucose (Glutose) 15 gm Q15M PRN BUCCAL DECREASED GLUCOSE; Start 11/23/16 at 10 :00 Guaifenesin (Robitussin Liquid Cup) 200 mg Q4H PRN PO COUGH Last administered on 11/24/16t 10:10; Admin Dose 200 MG; Start 11/24/16 at 09:30 LUIZA PENA Nov 24, 2016 10:55
--- NOTE | 2016-11-24 10:55 | CONS ---
Date/Time of Note Date/Time of Note DATE: 11/24/16 TIME: 10:49 Assessment/Plan Assessment/Plan Chief Complaint/Hosp Course Acute respiratory distress: In decompensated heart failure by exam and CXR. Also being treated for PNA. Improved. Acute on chronic systolic/diastolic heart failure: EF 30%. Decompensated by exam but improving. Closer to euvolemic now NSTEMI: Likely type II in setting of ADHF but trop significantly elevated to 4. Would recommend cardiac cath as per family she has not had one since her CABG. However considering her renal function, I had a discussion with the daughter and she prefers to continue medical management for now. As the pt is asymptomatic, I think this is reasonable for the time being. Acute on chronic renal failure: likely from above. Stable with diuresis Lactic acidosis Paroxysmal afib CAD s/p CABG BiV ICD -decrease to lasix 20mg IV BID, plan to switch to PO tomorrow -ASA 81mg daily -statin -hold Eliquis in case pt needs a cath and family is agreeable, otherwise will restart tomorrow -continue coreg, isordil/hydralazine -continue digoxin Problems: Consultation Date/Type/Reason Admit Date/Time Nov 22, 2016 at 16:41 Initial Consult Date 11/22/16 Type of Consultation: Cardiology Referring Provider: LUIZA PENA 24 HR Interval Summary Free Text/Dictation No o/n events. Feels better. Breathing improved. Exam/Review of Systems Vital Signs Vitals Vital Signs Date Time Temp Pulse Resp B/P Pulse Ox O2 Delivery O2 Flow Rate FiO2 11/24/16 08:49 69 11/24/16 08:00 98.2 18 127/61 99 11/24/16 04:23 3.0 11/24/16 04:23 Nasal Cannula Intake and Output 11/23/16 11/23/16 11/24/16 15:00 23:00 07:00 Intake Total 1125 ml 320 ml 220 ml Output Total 640 ml 200 ml 750 ml Balance 485 ml 120 ml -530 ml Exam Constitutional: alert, oriented Psych: no complaints Head: atraumatic, normocephalic Neck: jvd (7cm) Respiratory: crackles/rales, diminished breath sounds, No clear to auscultation Cardiovascular: edema (1+), regular rate and rhythm, systolic murmur (3/6) Gastrointestinal: soft, No distended Neurological: nl mental status, nl speech Results Result Diagram: 11/24/16 0510 11/24/16 0510 Results 24 hrs Laboratory Tests Test 11/23/16 11:16 11/23/16 17:20 11/23/16 21:08 11/23/16 23:40 Bedside Glucose 212 186 163 Urine Bacteria FEW Urine Bilirubin NEGATIVE Urine Clarity HAZY Urine Color LT. YELLOW Urine Glucose NEGATIVE Urine Hemoglobin 2+ H Urine Ketones NEGATIVE Urine Leukocyte Esterase NEGATIVE Urine Microscopic RBC 25-50 Urine Microscopic WBC 0-2 Urine Nitrite NEGATIVE Urine Specific [place] 1.015 Urine Squamous Epithelial Cells FEW Urine Total Protein NEGATIVE Urine Urobilinogen 0.2 E.U./dL Urine pH 5.0 Test 11/24/16 05:10 11/24/16 07:44 Anion Gap 18 H Basophils # 0.0 Basophils % 0.5 Blood Urea Nitrogen 58 H Calcium Level 8.9 Carbon Dioxide Level 24 Chloride Level 103 Creatinine 2.16 H Eosinophils # 0.1 Eosinophils % 1.5 Glucose Level 103 # Hematocrit 30.1 L Hemoglobin 10.1 L Lymphocytes # 1.4 Lymphocytes % 17.2 Mean Corpuscular Hemoglobin 31.0 Mean Corpuscular Hemoglobin Concent 33.4 Mean Corpuscular Volume 92.7 Mean Platelet Volume 8.6 Monocytes # 0.5 Monocytes % 6.3 Neutrophils # 6.2 Neutrophils % 74.5 Nucleated Red Blood Cells # 0.0 Nucleated Red Blood Cells % 0.0 Platelet Count 126 L Potassium Level 3.9 Red Blood Count 3.25 L Red Cell Distribution Width 14.1 Sodium Level 141 Vancomycin Level Trough 13.7 White Blood Count 8.3 # Bedside Glucose 120 Medications Medications Current Medications Ondansetron HCl (Zofran Inj) 4 mg Q6H PRN IV NAUSEA AND/OR VOMITING; Start at 17:00 Acetaminophen (Tylenol Tab) 650 mg Q6H PRN PO PAIN LEVEL 1-3 OR FEVER; Start at 17:00 Acetaminophen/ Hydrocodone Bitart ([place] (5/325)) 1 tab Q6H PRN PO MODERATE PAIN LEVEL 4-6 Last administered on 11/23/16t 15:04; Admin Dose 1 TAB; Start at 17:00 Morphine Sulfate (morphine) 2 mg Q4H PRN IV SEVERE PAIN LEVEL 7-10; Start 11/22 at 17:00 Docusate Sodium (Colace) 100 mg Q12H PRN PO CONSTIPATION; Start 11/22/16 at 17: 00 Magnesium Hydroxide (Milk Of Mag) 30 ml DAILY PRN PO CONSTIPATION; Start at 17:00 Sodium Biphosphate/ Sodium Phosphate (Fleet Enema) 133 ml DAILY PRN [place] CONSTIPATION; Start 11/22/16 at 17:00 Pantoprazole (Protonix Iv) 40 mg DAILY@06 IV Last administered on 11/24/16 05: 59; Admin Dose 40 MG; Start 11/23/16 at 06:00 Lorazepam (Ativan) 0.5 mg Q6H PRN IV ANXIETY; Start 11/22/16 at 17:00 Vancomycin HCl (Vanco Iv Per Pharmacy) VANCOMYCIN PER PHARMACY NOTE XX ; Start 11/22/16 at 17:00 Hydralazine HCl (Apresoline) 10 mg Q6H PRN IV ELEVATED BLOOD PRESSURE; Start at 17:00 Nitroglycerin (Nitroglycerin (Sl Tab) 0.4 Mg) 1 tab Q5M PRN SL ANGINA; Start at 17:00 Digoxin (Digoxin) 0.125 mg DAILY@13 PO Last administered on 11/23/16 13:55; Admin Dose 0.125 MG; Start 11/23/16 at 13:00 EZETIMIBE (Zetia) 10 mg DAILY PO Last administered on 11/24/16 08:34; Admin Dose 10 MG; Start 11/23/16 at 09:00 Hydralazine HCl (Apresoline) 10 mg Q6H PO Last administered on 11/24/16 05:58 ; Admin Dose 10 MG; Start 11/22/16 at 17:00 Isosorbide Dinitrate (Isordil) 20 mg TID PO Last administered on 11/24/16 08: 34; Admin Dose 20 MG; Start 11/22/16 at 21:00 Fish Oil 2000 mg 2,000 mg DAILY PO Last administered on 11/24/16 08:32; Admin Dose 2,000 MG; Start 11/23/16 at 09:00 Cefepime HCl (Maxipime 1gm/50 ml (Pmx)) 50 ml @ 100 mls/hr Q24H IVPB Last administered on 11/23/16 21:06; Admin Dose 100 MLS/HR; Start 11/22/16 at 21:00 Aspirin (Aspirin) 81 mg DAILY PO Last administered on 11/24/16 08:32; Admin Dose 81 MG; Start 11/23/16 at 09:00 Carvedilol (Coreg) 3.125 mg BID PO Last administered on 11/24/16 08:33; Admin Dose 3.125 MG; Start 11/22/16 at 21:00 Diagnostic Test (Pha) (Accucheck) 1 ea 02 XX ; Start 11/24/16 at 02:00 Miscellaneous Information 1 ea NOTE XX ; Start 11/23/16 at 10:00 Glucose (Glutose) 15 gm Q15M PRN PO DECREASED GLUCOSE; Start 11/23/16 at 10:00 Glucose (Glutose) 22.5 gm Q15M PRN PO DECREASED GLUCOSE; Start 11/23/16 at 10: 00 Dextrose (D50w Syringe) 25 ml Q15M PRN IV DECREASED GLUCOSE; Start 11/23/16 at 10:00 Dextrose (D50w Syringe) 50 ml Q15M PRN IV DECREASED GLUCOSE; Start 11/23/16 at 10:00 Glucagon (Glucagen) 1 mg Q15M PRN IM DECREASED GLUCOSE; Start 11/23/16 at 10:00 Glucose (Glutose) 15 gm Q15M PRN BUCCAL DECREASED GLUCOSE; Start 11/23/16 at 10 :00 Guaifenesin (Robitussin Liquid Cup) 200 mg Q4H PRN PO COUGH Last administered on 11/24/16 10:10; Admin Dose 200 MG; Start 11/24/16 at 09:30 GREG CAZARES Nov 24, 2016 10:55
[2016-11-24] MEDS: DIGOXIN 0.125 MG TAB PO SCH (14:28)
[2016-11-24] MEDS ORDERED: VANCOMYCIN 750 MG in SOD CHLORIDE 0.9% 150 ML IVPB SCH (17:00)
--- NOTE | 2016-11-24 18:53 | CONS ---
Date/Time of Note Date/Time of Note DATE: 11/24/16 TIME: 18:50 Assessment/Plan Assessment/Plan Additional Assessment/Plan Renal jarrett stable Pt improved over all. Cont'd Hospitalization Reason: COntinue close f/u Consultation Date/Type/Reason Admit Date/Time Nov 22, 2016 at 16:41 Initial Consult Date 11/22/16 Type of Consultation: renal Referring Provider: LUIZA PENA 24 HR Interval Summary Free Text/Dictation pt more comfortable but c/o feeling weak Constitutional: improved Exam/Review of Systems Vital Signs Vitals Vital Signs Date Time Temp Pulse Resp B/P Pulse Ox O2 Delivery O2 Flow Rate FiO2 11/24/16 18:45 3.0 11/24/16 16:07 72 11/24/16 15:51 98.2 19 135/61 98 11/24/16 11:25 Nasal Cannula Intake and Output 11/23/16 11/23/16 11/24/16 15:00 23:00 07:00 Intake Total 1125 ml 320 ml 220 ml Output Total 640 ml 200 ml 750 ml Balance 485 ml 120 ml -530 ml Exam Constitutional: alert, oriented, well developed Psych: nl mood/affect, no complaints Head: atraumatic, normocephalic Eyes: EOMI, PERRL, nl conjunctiva, nl lids, nl sclera ENMT: nl external ears & nose, nl lips & teeth, nl nasal mucosa & septum Neck: non-tender, supple Respiratory: crackles/rales Cardiovascular: nl pulses, regular rate and rhythm Gastrointestinal: nl liver, spleen, non-tender, soft Musculoskeletal: nl extremities to inspection, nl gait and stance Extremities: normal pulses Neurological: [employer]IAN II-XII intact, nl mental status, nl speech, nl strength Skin: nl turgor, No rash or lesions Additional Comments BS fluctuating Results Hct 30%, BUN/Creat stable Result Diagram: 11/24/16 0510 11/24/16 0510 Results 24 hrs Laboratory Tests Test 11/23/16 21:08 11/23/16 23:40 11/24/16 05:10 11/24/16 07:44 Bedside Glucose 163 120 Urine Bacteria FEW Urine Bilirubin NEGATIVE Urine Clarity HAZY Urine Color LT. YELLOW Urine Glucose NEGATIVE Urine Hemoglobin 2+ H Urine Ketones NEGATIVE Urine Leukocyte Esterase NEGATIVE Urine Microscopic RBC 25-50 Urine Microscopic WBC 0-2 Urine Nitrite NEGATIVE Urine Specific [place] 1.015 Urine Squamous Epithelial Cells FEW Urine Total Protein NEGATIVE Urine Urobilinogen 0.2 E.U./dL Urine pH 5.0 Anion Gap 18 H Basophils # 0.0 Basophils % 0.5 Blood Urea Nitrogen 58 H Calcium Level 8.9 Carbon Dioxide Level 24 Chloride Level 103 Creatinine 2.16 H Eosinophils # 0.1 Eosinophils % 1.5 Glucose Level 103 # Hematocrit 30.1 L Hemoglobin 10.1 L Lymphocytes # 1.4 Lymphocytes % 17.2 Mean Corpuscular Hemoglobin 31.0 Mean Corpuscular Hemoglobin Concent 33.4 Mean Corpuscular Volume 92.7 Mean Platelet Volume 8.6 Monocytes # 0.5 Monocytes % 6.3 Neutrophils # 6.2 Neutrophils % 74.5 Nucleated Red Blood Cells # 0.0 Nucleated Red Blood Cells % 0.0 Platelet Count 126 L Potassium Level 3.9 Red Blood Count 3.25 L Red Cell Distribution Width 14.1 Sodium Level 141 Vancomycin Level Trough 13.7 White Blood Count 8.3 # Test 11/24/16 11:24 11/24/16 16:58 Bedside Glucose 268 H 217 Medications Medications Current Medications Ondansetron HCl (Zofran Inj) 4 mg Q6H PRN IV NAUSEA AND/OR VOMITING; Start at 17:00 Acetaminophen (Tylenol Tab) 650 mg Q6H PRN PO PAIN LEVEL 1-3 OR FEVER; Start at 17:00 Acetaminophen/ Hydrocodone Bitart ([place] (5/325)) 1 tab Q6H PRN PO MODERATE PAIN LEVEL 4-6 Last administered on 11/23/16t 15:04; Admin Dose 1 TAB; Start at 17:00 Morphine Sulfate (morphine) 2 mg Q4H PRN IV SEVERE PAIN LEVEL 7-10; Start 11/22 at 17:00 Docusate Sodium (Colace) 100 mg Q12H PRN PO CONSTIPATION; Start 11/22/16 at 17: 00 Magnesium Hydroxide (Milk Of Mag) 30 ml DAILY PRN PO CONSTIPATION Last administered on 11/24/16t 12:41; Admin Dose 30 ML; Start 11/22/16 at 17:00 Sodium Biphosphate/ Sodium Phosphate (Fleet Enema) 133 ml DAILY PRN [place] CONSTIPATION; Start 11/22/16 at 17:00 Pantoprazole (Protonix Iv) 40 mg DAILY@06 IV Last administered on 11/24/16 05: 59; Admin Dose 40 MG; Start 11/23/16 at 06:00 Lorazepam (Ativan) 0.5 mg Q6H PRN IV ANXIETY; Start 11/22/16 at 17:00 Vancomycin HCl (Vanco Iv Per Pharmacy) VANCOMYCIN PER PHARMACY NOTE XX ; Start 11/22/16 at 17:00 Hydralazine HCl (Apresoline) 10 mg Q6H PRN IV ELEVATED BLOOD PRESSURE; Start at 17:00 Nitroglycerin (Nitroglycerin (Sl Tab) 0.4 Mg) 1 tab Q5M PRN SL ANGINA; Start at 17:00 Digoxin (Digoxin) 0.125 mg DAILY@13 PO Last administered on 11/24/16 14:28; Admin Dose 0.125 MG; Start 11/23/16 at 13:00 EZETIMIBE (Zetia) 10 mg DAILY PO Last administered on 11/24/16 08:34; Admin Dose 10 MG; Start 11/23/16 at 09:00 Hydralazine HCl (Apresoline) 10 mg Q6H PO Last administered on 11/24/16 17:28 ; Admin Dose 10 MG; Start 11/22/16 at 17:00 Isosorbide Dinitrate (Isordil) 20 mg TID PO Last administered on 11/24/16 14: 28; Admin Dose 20 MG; Start 11/22/16 at 21:00 Fish Oil 2000 mg 2,000 mg DAILY PO Last administered on 11/24/16 08:32; Admin Dose 2,000 MG; Start 11/23/16 at 09:00 Cefepime HCl (Maxipime 1gm/50 ml (Pmx)) 50 ml @ 100 mls/hr Q24H IVPB Last administered on 11/23/16 21:06; Admin Dose 100 MLS/HR; Start 11/22/16 at 21:00 Aspirin (Aspirin) 81 mg DAILY PO Last administered on 11/24/16 08:32; Admin Dose 81 MG; Start 11/23/16 at 09:00 Carvedilol (Coreg) 3.125 mg BID PO Last administered on 11/24/16 08:33; Admin Dose 3.125 MG; Start 11/22/16 at 21:00 Diagnostic Test (Pha) (Accucheck) 1 ea 02 XX ; Start 11/24/16 at 02:00 Miscellaneous Information 1 ea NOTE XX ; Start 11/23/16 at 10:00 Glucose (Glutose) 15 gm Q15M PRN PO DECREASED GLUCOSE; Start 11/23/16 at 10:00 Glucose (Glutose) 22.5 gm Q15M PRN PO DECREASED GLUCOSE; Start 11/23/16 at 10: 00 Dextrose (D50w Syringe) 25 ml Q15M PRN IV DECREASED GLUCOSE; Start 11/23/16 at 10:00 Dextrose (D50w Syringe) 50 ml Q15M PRN IV DECREASED GLUCOSE; Start 11/23/16 at 10:00 Glucagon (Glucagen) 1 mg Q15M PRN IM DECREASED GLUCOSE; Start 11/23/16 at 10:00 Glucose (Glutose) 15 gm Q15M PRN BUCCAL DECREASED GLUCOSE; Start 11/23/16 at 10 :00 Guaifenesin 200 mg 200 mg Q4H PRN PO COUGH Last administered on 11/24/16 14:29 ; Admin Dose 200 MG; Start 11/24/16 at 09:30 Vancomycin HCl/ Sodium Chloride (Vancocin/NS) 150 ml @ 75 mls/hr 17 IVPB Last administered on 11/24/16 18:38; Admin Dose 75 MLS/HR; Start 11/24/16 at 17:00; Stop 11/24/16 at 19:00 CHELSEA CLAY MD Nov 24, 2016 18:53
[2016-11-24] MEDS: CEFEPIME 1GM/50 ML (PMX) 50 ML IVPB SCH (20:56)
[2016-11-25] VITALS (13 sets, daily range): BP systolic 114–152; BP diastolic 62–72; PULSE 69–75; RESP 16–20
[2016-11-25] MEDS: ACCUCHECK XX SCH (02:00)
[2016-11-25] MEDS: PANTOPRAZOLE 40 MG INJ IV SCH (05:32)
[2016-11-25] MEDS: FUROSEMIDE 40 MG INJ IV SCH (05:33)
[2016-11-25] MEDS: GUAIFENESIN 20 MG/ML 5ML CUP PO PRN (05:33)
[2016-11-25] MEDS: FISH OIL 1,000 MG CAP PO SCH (08:36)
[2016-11-25] MEDS: EZETIMIBE 10 MG TAB PO SCH (08:36)
[2016-11-25] MEDS: ASPIRIN 81 MG TAB PO SCH (08:36)
[2016-11-25] MEDS: ISOSORBIDE DINITRATE 20 MG TAB PO SCH ×3 (08:37→20:28)
[2016-11-25] MEDS: INSULIN ASPART [NOVOLOG] 3 ML PEN SC SCH ×5 (08:42→21:00)
[2016-11-25] MEDS ORDERED: INFLUENZA VIRUS VACCINE 0.5 ML (DISPENSING) IM* ONE (09:00)
--- NOTE | 2016-11-25 10:08 | PN ---
Date/Time of Note Date/Time of Note DATE: 11/25/16 TIME: 10:05 Assessment/Plan VTE Prophylaxis VTE Prophylaxis Intervention: other (Eliquis) Lines/Catheters IV Catheter Type (from Nrs): Peripheral IV Urinary Cath still in place: Yes Reason Cath still needed: urinary retention Assessment/Plan Chief Complaint/Hosp Course ASSESSMENT AND PLAN: 86-year-old female coming in with respiratory distress, most likely secondary to combination of congestive heart failure exacerbation and pneumonia, also signs of non-ST elevation myocardial infarction, lactic acidosis and acute on chronic renal failure. 1. Respiratory distress - slowly improving, sec likely to congestive heart failure. Also prior hx of CAD, status post CABG; history of AICD as well. - continue lasix per CV rec's, f/u cardiology consult rec's - Continue digoxin, Isordil, low dose BB as well. - continue broad spectrum antibiotics, cefepime and vancomycin for now. Monitor ins and outs. 2. Elevated troponins - type II setting NSTEMI. Again, pt also has prior hx of CAD, status post CABG; history of AICD as well. - continue to trend her troponins. - continue aspirin and statin as well. - continue medical management for now - would probably benefit from [facility] although family and pt refusing this. 3. Acute on chronic renal failure. Again, continue to monitor for now. Cr still elevated. - f/u renal consult as well. 4. Lactic acidosis - improved. - Monitor lactic acid for now. Holding off on IV fluids given her heart failure. 5. History of paroxysmal atrial fibrillation - will today resume Eliquis 6. History of type 2 diabetes. A1c = 8.7 - continue sliding scale insulin 7. Rheumatoid arthritis. Continue to monitor for now. 8. Gastrointestinal prophylaxis - PPI. 9. Deep venous thrombosis prophylaxis. Eliquis Problems: Subjective 24 Hr Interval Summary Free Text/Dictation Pt still with some SOB, cough but overall feels better. Exam/Review of Systems Vital Signs Vitals Vital Signs Date Time Temp Pulse Resp B/P Pulse Ox O2 Delivery O2 Flow Rate FiO2 11/25/16 09:31 69 11/25/16 07:24 98.3 18 152/64 98 11/25/16 01:00 Nasal Cannula 2.0 Intake and Output 11/24/16 11/24/16 11/25/16 15:00 23:00 07:00 Intake Total 240 ml 350 ml Output Total 200 ml 1050 ml Balance 40 ml -700 ml Exam GENERAL: more alert, opens eyes, sitting in bed HEENT: Pupils equal, round, react to light. Extraocular muscles intact. NECK: Supple. No thyromegaly. LUNGS: + positive crackles and rales, wheezes heard at the bases bilaterally R> L CARDIOVASCULAR: S1 and S2 heard. There is a III/ systolic murmur heard best at left sternal border, otherwise regular rate and rhythm. ABDOMEN: Soft, nontender, nondistended. Normal bowel sounds. No rebound or guarding. MUSCULOSKELETAL: trace pitting edema, bilateral lower extremities to mid calves. NEUROLOGIC: No focal deficits. Results Result Diagram: 11/24/16 0510 11/24/16 05 Results 24 hrs Laboratory Tests Test 11/24/16 11:24 11/24/16 16:58 11/24/16 20:58 11/25/16 08:02 Bedside Glucose 268 H 217 211 188 Medications Medications Current Medications Ondansetron HCl (Zofran Inj) 4 mg Q6H PRN IV NAUSEA AND/OR VOMITING; Start at 17:00 Acetaminophen (Tylenol Tab) 650 mg Q6H PRN PO PAIN LEVEL 1-3 OR FEVER; Start at 17:00 Acetaminophen/ Hydrocodone Bitart ([place] (5/325)) 1 tab Q6H PRN PO MODERATE PAIN LEVEL 4-6 Last administered on 11/23/16 15:04; Admin Dose 1 TAB; Start at 17:00 Morphine Sulfate (morphine) 2 mg Q4H PRN IV SEVERE PAIN LEVEL 7-10; Start 11/22 at 17:00 Docusate Sodium (Colace) 100 mg Q12H PRN PO CONSTIPATION; Start 11/22/16 at 17: 00 Magnesium Hydroxide (Milk Of Mag) 30 ml DAILY PRN PO CONSTIPATION Last administered on 11/24/16 12:41; Admin Dose 30 ML; Start 11/22/16 at 17:00 Sodium Biphosphate/ Sodium Phosphate (Fleet Enema) 133 ml DAILY PRN [place] CONSTIPATION Last administered on 11/25/16 01:11; Admin Dose 133 ML; Start at 17:00 Pantoprazole (Protonix Iv) 40 mg DAILY@06 IV Last administered on 11/25/16 05: 32; Admin Dose 40 MG; Start 11/23/16 at 06:00 Lorazepam (Ativan) 0.5 mg Q6H PRN IV ANXIETY; Start 11/22/16 at 17:00 Vancomycin HCl (Vanco Iv Per Pharmacy) VANCOMYCIN PER PHARMACY NOTE XX ; Start 11/22/16 at 17:00 Hydralazine HCl (Apresoline) 10 mg Q6H PRN IV ELEVATED BLOOD PRESSURE; Start at 17:00 Nitroglycerin (Nitroglycerin (Sl Tab) 0.4 Mg) 1 tab Q5M PRN SL ANGINA; Start at 17:00 Digoxin (Digoxin) 0.125 mg DAILY@13 PO Last administered on 11/24/16 14:28; Admin Dose 0.125 MG; Start 11/23/16 at 13:00 EZETIMIBE (Zetia) 10 mg DAILY PO Last administered on 11/25/16 08:36; Admin Dose 10 MG; Start 11/23/16 at 09:00 Hydralazine HCl (Apresoline) 10 mg Q6H PO Last administered on 11/25/16 05:32 ; Admin Dose 10 MG; Start 11/22/16 at 17:00 Isosorbide Dinitrate (Isordil) 20 mg TID PO Last administered on 11/25/16 08: 37; Admin Dose 20 MG; Start 11/22/16 at 21:00 Fish Oil 2000 mg 2,000 mg DAILY PO Last administered on 11/25/16 08:36; Admin Dose 2,000 MG; Start 11/23/16 at 09:00 Cefepime HCl (Maxipime 1gm/50 ml (Pmx)) 50 ml @ 100 mls/hr Q24H IVPB Last administered on 11/24/16 20:56; Admin Dose 100 MLS/HR; Start 11/22/16 at 21:00 Aspirin (Aspirin) 81 mg DAILY PO Last administered on 11/25/16 08:36; Admin Dose 81 MG; Start 11/23/16 at 09:00 Carvedilol (Coreg) 3.125 mg BID PO Last administered on 11/25/16 08:37; Admin Dose 3.125 MG; Start 11/22/16 at 21:00 Diagnostic Test (Pha) (Accucheck) 1 ea 02 XX ; Start 11/24/16 at 02:00 Miscellaneous Information 1 ea NOTE XX ; Start 11/23/16 at 10:00 Glucose (Glutose) 15 gm Q15M PRN PO DECREASED GLUCOSE; Start 11/23/16 at 10:00 Glucose (Glutose) 22.5 gm Q15M PRN PO DECREASED GLUCOSE; Start 11/23/16 at 10: 00 Dextrose (D50w Syringe) 25 ml Q15M PRN IV DECREASED GLUCOSE; Start 11/23/16 at 10:00 Dextrose (D50w Syringe) 50 ml Q15M PRN IV DECREASED GLUCOSE; Start 11/23/16 at 10:00 Glucagon (Glucagen) 1 mg Q15M PRN IM DECREASED GLUCOSE; Start 11/23/16 at 10:00 Glucose (Glutose) 15 gm Q15M PRN BUCCAL DECREASED GLUCOSE; Start 11/23/16 at 10 :00 Guaifenesin (Robitussin Liquid Cup) 200 mg Q4H PRN PO COUGH Last administered on 11/25/16t 05:33; Admin Dose 200 MG; Start 11/24/16 at 09:30 LUIZA PENA Nov 25, 2016 10:08
[2016-11-25] MEDS: ALBUTEROL/IPRATROPIUM (NEB) 3 ML AMP HHN SCH ×4 (10:23→21:15)
[2016-11-25] MEDS ORDERED: CEPASTAT LOZENGE MT PRN (10:30)
[2016-11-25 10:37] LABS: BASOPHILS % 0.3 % (0.0-2.0); EOSINOPHILS # 0.1 10^3/ul (0.0-0.5); HEMATOCRIT 27.5 % (37.0-47.0); HEMOGLOBIN 9.4 g/dl (12.0-16.0); LYMPHOCYTES # 1.1 10^3/ul (0.8-2.9); LYMPHOCYTES % 15.9 % (15.0-51.0); MEAN CORPUSCULAR HEMOGLOBIN 31.3 pg (29.0-33.0); MEAN CORPUSCULAR HGB CONC 34.2 g/dl (32.0-37.0); MEAN CORPUSCULAR VOLUME 91.5 fl (82.0-101.0); MEAN PLATELET VOLUME 8.5 fl (7.4-10.4); MONOCYTE # 0.5 10^3/ul (0.3-0.9); MONOCYTES % 7.8 % (0.0-11.0); NEUTROPHIL # 5.2 10^3/ul (1.6-7.5); PLATELET COUNT 123 10^3/UL (140-440); RED CELL DISTRIBUTION WIDTH 13.2 % (11.5-14.5)
[2016-11-25 10:49] LABS: CONDITION 1; CREATININE 1.9 mg/dl (0.44-1.00)
[2016-11-25 10:50] LABS: CALCIUM 8.6 mg/dl (8.4-10.2)
--- NOTE | 2016-11-25 10:53 | CONS ---
Date/Time of Note Date/Time of Note DATE: 11/25/16 TIME: 10:50 Assessment/Plan Assessment/Plan Chief Complaint/Hosp Course Acute respiratory distress: In decompensated heart failure by exam and CXR on admission. Also being treated for PNA. 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 Now euvolemic NSTEMI: Likely type II in setting of ADHF but trop significantly elevated to 4. Would recommend cardiac cath as per family she has not had one since her CABG. However considering her renal function, I had a discussion with the daughter and she prefers to continue medical management for now. As the pt is asymptomatic, I think this is reasonable for the time being. Acute on chronic renal failure: likely from above. Stable with diuresis Lactic acidosis Paroxysmal afib CAD s/p CABG BiV ICD -decrease to lasix 40mg PO daily (home dose) -can be discharged today if doing well with PT and labs ok (pending) -ASA 81mg daily (consider swithcing to plavix as outpt but hesitant as already on Eliquis) -statin -ok to resume Eliquis -continue coreg, isordil/hydralazine -continue digoxin Problems: Consultation Date/Type/Reason Admit Date/Time Nov 22, 2016 at 16:41 Initial Consult Date 11/22/16 Type of Consultation: Cardiology Referring Provider: LUIZA PENA 24 HR Interval Summary Free Text/Dictation No o/n events. Worked with PT. Daughter would like to take her home today Exam/Review of Systems Vital Signs Vitals Vital Signs Date Time Temp Pulse Resp B/P Pulse Ox O2 Delivery O2 Flow Rate FiO2 11/25/16 09:31 69 11/25/16 07:24 98.3 18 152/64 98 11/25/16 01:00 Nasal Cannula 2.0 Intake and Output 11/24/16 11/24/16 11/25/16 15:00 23:00 07:00 Intake Total 240 ml 350 ml Output Total 200 ml 1050 ml Balance 40 ml -700 ml Exam Constitutional: alert, oriented Psych: no complaints Head: normocephalic Neck: No jvd Respiratory: No clear to auscultation (ronchi), No crackles/rales Cardiovascular: regular rate and rhythm, systolic murmur (3/6 AURA), No edema Gastrointestinal: non-tender, soft Neurological: nl mental status, nl speech Results Result Diagram: 11/25/16 0948 11/25/16 0948 Results 24 hrs Laboratory Tests Test 11/24/16 11:24 11/24/16 16:58 11/24/16 20:58 11/25/16 08:02 Bedside Glucose 268 H 217 211 188 Test 11/25/16 09:48 Anion Gap Pending Basophils # 0.0 Basophils % 0.3 Blood Urea Nitrogen Pending Calcium Level Pending Carbon Dioxide Level Pending Chloride Level 101 Creatinine Pending Eosinophils # 0.1 Eosinophils % 1.0 Glucose Level Pending Hematocrit 27.5 L Hemoglobin 9.4 L Lymphocytes # 1.1 Lymphocytes % 15.9 Mean Corpuscular Hemoglobin 31.3 Mean Corpuscular Hemoglobin Concent 34.2 Mean Corpuscular Volume 91.5 Mean Platelet Volume 8.5 Monocytes # 0.5 Monocytes % 7.8 Neutrophils # 5.2 Neutrophils % 75.0 Nucleated Red Blood Cells # 0.0 Nucleated Red Blood Cells % 0.0 Platelet Count 123 L Potassium Level 4.0 Red Blood Count 3.00 L Red Cell Distribution Width 13.2 Sodium Level 138 White Blood Count 7.0 Medications Medications Current Medications Ondansetron HCl (Zofran Inj) 4 mg Q6H PRN IV NAUSEA AND/OR VOMITING; Start at 17:00 Acetaminophen (Tylenol Tab) 650 mg Q6H PRN PO PAIN LEVEL 1-3 OR FEVER; Start at 17:00 Acetaminophen/ Hydrocodone Bitart ([place] (5/325)) 1 tab Q6H PRN PO MODERATE PAIN LEVEL 4-6 Last administered on 11/23/16t 15:04; Admin Dose 1 TAB; Start at 17:00 Morphine Sulfate (morphine) 2 mg Q4H PRN IV SEVERE PAIN LEVEL 7-10; Start 11/22 at 17:00 Docusate Sodium (Colace) 100 mg Q12H PRN PO CONSTIPATION; Start 11/22/16 at 17: 00 Magnesium Hydroxide (Milk Of Mag) 30 ml DAILY PRN PO CONSTIPATION Last administered on 11/24/16 12:41; Admin Dose 30 ML; Start 11/22/16 at 17:00 Sodium Biphosphate/ Sodium Phosphate (Fleet Enema) 133 ml DAILY PRN [place] CONSTIPATION Last administered on 11/25/16 01:11; Admin Dose 133 ML; Start at 17:00 Pantoprazole (Protonix Iv) 40 mg DAILY@06 IV Last administered on 11/25/16 05: 32; Admin Dose 40 MG; Start 11/23/16 at 06:00 Lorazepam (Ativan) 0.5 mg Q6H PRN IV ANXIETY; Start 11/22/16 at 17:00 Vancomycin HCl (Vanco Iv Per Pharmacy) VANCOMYCIN PER PHARMACY NOTE XX ; Start 11/22/16 at 17:00 Hydralazine HCl (Apresoline) 10 mg Q6H PRN IV ELEVATED BLOOD PRESSURE; Start at 17:00 Nitroglycerin (Nitroglycerin (Sl Tab) 0.4 Mg) 1 tab Q5M PRN SL ANGINA; Start at 17:00 Digoxin (Digoxin) 0.125 mg DAILY@13 PO Last administered on 11/24/16 14:28; Admin Dose 0.125 MG; Start 11/23/16 at 13:00 EZETIMIBE (Zetia) 10 mg DAILY PO Last administered on 11/25/16 08:36; Admin Dose 10 MG; Start 11/23/16 at 09:00 Hydralazine HCl (Apresoline) 10 mg Q6H PO Last administered on 11/25/16 05:32 ; Admin Dose 10 MG; Start 11/22/16 at 17:00 Isosorbide Dinitrate (Isordil) 20 mg TID PO Last administered on 11/25/16 08: 37; Admin Dose 20 MG; Start 11/22/16 at 21:00 Fish Oil 2000 mg 2,000 mg DAILY PO Last administered on 11/25/16 08:36; Admin Dose 2,000 MG; Start 11/23/16 at 09:00 Cefepime HCl (Maxipime 1gm/50 ml (Pmx)) 50 ml @ 100 mls/hr Q24H IVPB Last administered on 11/24/16 20:56; Admin Dose 100 MLS/HR; Start 11/22/16 at 21:00 Aspirin (Aspirin) 81 mg DAILY PO Last administered on 11/25/16 08:36; Admin Dose 81 MG; Start 11/23/16 at 09:00 Carvedilol (Coreg) 3.125 mg BID PO Last administered on 11/25/16 08:37; Admin Dose 3.125 MG; Start 11/22/16 at 21:00 Diagnostic Test (Pha) (Accucheck) 1 ea 02 XX ; Start 11/24/16 at 02:00 Miscellaneous Information 1 ea NOTE XX ; Start 11/23/16 at 10:00 Glucose (Glutose) 15 gm Q15M PRN PO DECREASED GLUCOSE; Start 11/23/16 at 10:00 Glucose (Glutose) 22.5 gm Q15M PRN PO DECREASED GLUCOSE; Start 11/23/16 at 10: 00 Dextrose (D50w Syringe) 25 ml Q15M PRN IV DECREASED GLUCOSE; Start 11/23/16 at 10:00 Dextrose (D50w Syringe) 50 ml Q15M PRN IV DECREASED GLUCOSE; Start 11/23/16 at 10:00 Glucagon (Glucagen) 1 mg Q15M PRN IM DECREASED GLUCOSE; Start 11/23/16 at 10:00 Glucose (Glutose) 15 gm Q15M PRN BUCCAL DECREASED GLUCOSE; Start 11/23/16 at 10 :00 Guaifenesin (Robitussin Liquid Cup) 200 mg Q4H PRN PO COUGH Last administered on 11/25/16 05:33; Admin Dose 200 MG; Start 11/24/16 at 09:30 Apixaban (Eliquis) 2.5 mg BID PO ; Start 11/25/16 at 10:30 Phenol (Cepastat Lozenge) 1 lozenge Q1H PRN MT COUGH; Start 11/25/16 at 10:30 Furosemide (Lasix) 40 mg DAILY PO ; Start 11/26/16 at 09:00 GREG CAZARES Nov 25, 2016 10:53
[2016-11-25] MEDS: DIGOXIN 0.125 MG TAB PO SCH (12:11)
[2016-11-25] MEDS: APIXABAN 5 MG TABLET PO SCH ×2 (12:11→20:28)
[2016-11-25 17:39] LABS: MICROALBUMIN 1.4 mg/dL
[2016-11-25] MEDS ORDERED: INSULIN GLARGINE [LANtus] 3 ML PEN SC SCH (20:00)
[2016-11-25] MEDS: HYDROCODONE/APAP (5/325) TAB PO PRN (20:31)
[2016-11-25] MEDS: CEFEPIME 1GM/50 ML (PMX) 50 ML IVPB SCH (20:32)
--- NOTE | 2016-11-25 22:06 | CONS ---
Date/Time of Note Date/Time of Note DATE: 11/25/16 TIME: 22:04 Assessment/Plan Assessment/Plan Additional Assessment/Plan Pt is improved renal jarrett Will contiue supportive care Consultation Date/Type/Reason Admit Date/Time Nov 22, 2016 at 16:41 Initial Consult Date 11/22/16 Type of Consultation: Cardiology Referring Provider: LUIZA PENA Exam/Review of Systems Vital Signs Vitals Vital Signs Date Time Temp Pulse Resp B/P Pulse Ox O2 Delivery O2 Flow Rate FiO2 11/25/16 21:46 Nasal Cannula 3.0 11/25/16 21:43 69 11/25/16 21:17 20 94 32 11/25/16 19:41 98.4 152/72 Intake and Output 11/24/16 11/24/16 11/25/16 15:00 23:00 07:00 Intake Total 240 ml 350 ml Output Total 200 ml 1050 ml Balance 40 ml -700 ml Exam Seems more comfortable Constitutional: alert, oriented, well developed Psych: nl mood/affect, no complaints Head: atraumatic, normocephalic Eyes: EOMI, PERRL, nl conjunctiva, nl lids, nl sclera ENMT: nl external ears & nose, nl lips & teeth, nl nasal mucosa & septum Neck: non-tender, supple Respiratory: clear to auscultation, normal air movement Cardiovascular: nl pulses, regular rate and rhythm Gastrointestinal: nl liver, spleen, non-tender, soft Musculoskeletal: nl extremities to inspection, nl gait and stance Extremities: normal pulses Neurological: [employer] II-XII intact, nl mental status, nl speech, nl strength Skin: nl turgor, No rash or lesions Lymph: nl lymph nodes Results Hct, Chemistry is stable Result Diagram: 11/25/1648 11/25/16 0948 Results 24 hrs Laboratory Tests Test 11/25/16 08:02 11/25/16 09:48 11/25/16 11:45 11/25/16 17:12 Bedside Glucose 188 310 H 173 Anion Gap 16 Basophils # 0.0 Basophils % 0.3 Blood Urea Nitrogen 57 H Calcium Level 8.6 Carbon Dioxide Level 25 Chloride Level 101 Creatinine 1.90 H Eosinophils # 0.1 Eosinophils % 1.0 Glucose Level 252 #H Hematocrit 27.5 L Hemoglobin 9.4 L Lymphocytes # 1.1 Lymphocytes % 15.9 Mean Corpuscular Hemoglobin 31.3 Mean Corpuscular Hemoglobin Concent 34.2 Mean Corpuscular Volume 91.5 Mean Platelet Volume 8.5 Monocytes # 0.5 Monocytes % 7.8 Neutrophils # 5.2 Neutrophils % 75.0 Nucleated Red Blood Cells # 0.0 Nucleated Red Blood Cells % 0.0 Platelet Count 123 L Potassium Level 4.0 Red Blood Count 3.00 L Red Cell Distribution Width 13.2 Sodium Level 138 White Blood Count 7.0 Test 11/25/16 19:59 Bedside Glucose 162 Medications Medications Current Medications Ondansetron HCl (Zofran Inj) 4 mg Q6H PRN IV NAUSEA AND/OR VOMITING; Start at 17:00 Acetaminophen (Tylenol Tab) 650 mg Q6H PRN PO PAIN LEVEL 1-3 OR FEVER; Start at 17:00 Acetaminophen/ Hydrocodone Bitart ([place] (5/325)) 1 tab Q6H PRN PO MODERATE PAIN LEVEL 4-6 Last administered on 11/25/16 20:31; Admin Dose 1 TAB; Start at 17:00 Morphine Sulfate (morphine) 2 mg Q4H PRN IV SEVERE PAIN LEVEL 7-10; Start 11/22 at 17:00 Docusate Sodium (Colace) 100 mg Q12H PRN PO CONSTIPATION; Start 11/22/16 at 17: 00 Magnesium Hydroxide (Milk Of Mag) 30 ml DAILY PRN PO CONSTIPATION Last administered on 11/24/16 12:41; Admin Dose 30 ML; Start 11/22/16 at 17:00 Sodium Biphosphate/ Sodium Phosphate (Fleet Enema) [address] CONSTIPATION Last administered on 11/25/16 01:11; Admin Dose 133 ML; Start at 17:00 Pantoprazole (Protonix Iv) 40 mg DAILY@06 IV Last administered on 11/25/16 05: 32; Admin Dose 40 MG; Start 11/23/16 at 06:00 Lorazepam (Ativan) 0.5 mg Q6H PRN IV ANXIETY; Start 11/22/16 at 17:00 Vancomycin HCl (Vanco Iv Per Pharmacy) VANCOMYCIN PER PHARMACY NOTE XX ; Start 11/22/16 at 17:00 Hydralazine HCl (Apresoline) 10 mg Q6H PRN IV ELEVATED BLOOD PRESSURE; Start at 17:00 Nitroglycerin (Nitroglycerin (Sl Tab) 0.4 Mg) 1 tab Q5M PRN SL ANGINA; Start at 17:00 Digoxin (Digoxin) 0.125 mg DAILY@13 PO Last administered on 11/25/16 12:11; Admin Dose 0.125 MG; Start 11/23/16 at 13:00 EZETIMIBE (Zetia) 10 mg DAILY PO Last administered on 11/25/16 08:36; Admin Dose 10 MG; Start 11/23/16 at 09:00 Hydralazine HCl (Apresoline) 10 mg Q6H PO Last administered on 11/25/16 16:18 ; Admin Dose 10 MG; Start 11/22/16 at 17:00 Isosorbide Dinitrate (Isordil) 20 mg TID PO Last administered on 11/25/16 20: 28; Admin Dose 20 MG; Start 11/22/16 at 21:00 Fish Oil 2000 mg 2,000 mg DAILY PO Last administered on 11/25/16 08:36; Admin Dose 2,000 MG; Start 11/23/16 at 09:00 Cefepime HCl (Maxipime 1gm/50 ml (Pmx)) 50 ml @ 100 mls/hr Q24H IVPB Last administered on 11/25/16 20:32; Admin Dose 100 MLS/HR; Start 11/22/16 at 21:00 Aspirin (Aspirin) 81 mg DAILY PO Last administered on 11/25/16 08:36; Admin Dose 81 MG; Start 11/23/16 at 09:00 Carvedilol (Coreg) 3.125 mg BID PO Last administered on 11/25/16 20:27; Admin Dose 3.125 MG; Start 11/22/16 at 21:00 Diagnostic Test (Pha) (Accucheck) 1 ea 02 XX ; Start 11/24/16 at 02:00 Miscellaneous Information 1 ea NOTE XX ; Start 11/23/16 at 10:00 Glucose (Glutose) 15 gm Q15M PRN PO DECREASED GLUCOSE; Start 11/23/16 at 10:00 Glucose (Glutose) 22.5 gm Q15M PRN PO DECREASED GLUCOSE; Start 11/23/16 at 10: 00 Dextrose (D50w Syringe) 25 ml Q15M PRN IV DECREASED GLUCOSE; Start 11/23/16 at 10:00 Dextrose (D50w Syringe) 50 ml Q15M PRN IV DECREASED GLUCOSE; Start 11/23/16 at 10:00 Glucagon (Glucagen) 1 mg Q15M PRN IM DECREASED GLUCOSE; Start 11/23/16 at 10:00 Glucose (Glutose) 15 gm Q15M PRN BUCCAL DECREASED GLUCOSE; Start 11/23/16 at 10 :00 Guaifenesin (Robitussin Liquid Cup) 200 mg Q4H PRN PO COUGH Last administered on 11/25/16 05:33; Admin Dose 200 MG; Start 11/24/16 at 09:30 Apixaban (Eliquis) 2.5 mg BID PO Last administered on 11/25/16 20:28; Admin Dose 2.5 MG; Start 11/25/16 at 10:30 Phenol (Cepastat Lozenge) 1 lozenge Q1H PRN MT COUGH; Start 11/25/16 at 10:30 Furosemide (Lasix) 40 mg DAILY PO ; Start 11/26/16 at 09:00 Miscellaneous Information (*Rx Drug Level Order Reminder*) RANDOM VANCO LEVEL... ONCE ONCE XX ; Start 11/26/16 at 05:00; Stop 11/26/16 at 05:01 Insulin Glargine (Lantus) 20 unit DAILY@20 SC Last administered on 11/25/16 20 :34; Admin Dose 20 UNIT; Start 11/25/16 at 20:00 CHELSEA CLAY MD Nov 25, 2016 22:06
[2016-11-26] VITALS (9 sets, daily range): BP systolic 132–141; BP diastolic 62–71; PULSE 68–70; RESP 18–20
[2016-11-26] MEDS: ALBUTEROL/IPRATROPIUM (NEB) 3 ML AMP HHN SCH ×4 (01:06→12:45)
[2016-11-26] MEDS: ACCUCHECK XX SCH (02:00)
[2016-11-26] MEDS: PANTOPRAZOLE 40 MG INJ IV SCH (05:13)
[2016-11-26 05:59] LABS: BASOPHILS % 0.5 % (0.0-2.0); EOSINOPHILS # 0.1 10^3/ul (0.0-0.5); HEMATOCRIT 27.6 % (37.0-47.0); HEMOGLOBIN 9.6 g/dl (12.0-16.0); LYMPHOCYTES # 1.2 10^3/ul (0.8-2.9); LYMPHOCYTES % 17.3 % (15.0-51.0); MEAN CORPUSCULAR HEMOGLOBIN 31.7 pg (29.0-33.0); MEAN CORPUSCULAR HGB CONC 34.8 g/dl (32.0-37.0); MEAN PLATELET VOLUME 8.9 fl (7.4-10.4); MONOCYTE # 0.6 10^3/ul (0.3-0.9); MONOCYTES % 9.4 % (0.0-11.0); NEUTROPHIL # 4.9 10^3/ul (1.6-7.5); NEUTROPHILS % 71.8 % (39.0-77.0); PLATELET COUNT 125 10^3/UL (140-440); RED BLOOD COUNT 3.03 10^6/ul (4.20-5.40); RED CELL DISTRIBUTION WIDTH 12.9 % (11.5-14.5); UNCORRECTED WBC 6.8 10^3/ul (4.8-10.8); WHITE BLOOD COUNT 6.8 10^3/ul (4.8-10.8)
[2016-11-26 06:21] LABS: CONDITION 1
[2016-11-26] MEDS: INSULIN ASPART [NOVOLOG] 3 ML PEN SC SCH ×4 (07:44→11:34)
[2016-11-26] MEDS ORDERED: VANCOMYCIN 750 MG in SOD CHLORIDE 0.9% 150 ML IVPB SCH (08:00)
[2016-11-26] MEDS: ASPIRIN 81 MG TAB PO SCH (08:18)
[2016-11-26] MEDS: APIXABAN 5 MG TABLET PO SCH (08:19)
[2016-11-26] MEDS: FISH OIL 1,000 MG CAP PO SCH (08:19)
[2016-11-26] MEDS: ISOSORBIDE DINITRATE 20 MG TAB PO SCH ×2 (08:20→13:45)
[2016-11-26] MEDS: EZETIMIBE 10 MG TAB PO SCH (08:20)
[2016-11-26] MEDS ORDERED: FUROSEMIDE 40 MG TAB PO SCH (09:00)
[2016-11-26 09:12] LABS: POTASSIUM 4.1 mmol/L (3.5-5.1)
[2016-11-26 09:15] LABS: CREATININE 1.79 mg/dl (0.44-1.00)
[2016-11-26 09:16] LABS: CALCIUM 8.7 mg/dl (8.4-10.2)
--- NOTE | 2016-11-26 10:29 | PDOCDIS ---
Discharge Instructions CONDITION Patient Condition: Stable HOME CARE INSTRUCTIONS: Special Diet: CARB CONTROLLED ACTIVITY: Activity Restrictions: Slowly Increase Activity FOLLOW UP/APPOINTMENTS Appointments Take your medications, see your doctor in clinic in1 week. LUIZA PENA Nov 26, 2016 10:29
[2016-11-26] MEDS ORDERED: CEPASTAT MT (10:33)
[2016-11-26] MEDS ORDERED: FURO40TA4 PO (10:33)
[2016-11-26] MEDS ORDERED: GUAI-637 PO (10:33)
[2016-11-26] MEDS ORDERED: LEVO750T25 PO (10:42)
--- NOTE | 2016-11-26 11:27 | DS ---
DATE OF ADMISSION: 11/22/2016 DATE OF DISCHARGE: 11/26/2016 HOSPITAL COURSE: This is an 86-year-old female originally admitted on 11/22/2014, being discharged home on 11/26/2016. The patient came in with weakness and shortness of breath. She was found to lowery ve CHF exacerbation. She has been admitted in the past for this as well. She was admitted and seen by cardiology team. She underwent an echocardiogram that showed ejection fraction of about 30%, no rmal left ventricular cavity size, normal left ventricular wall thickness, moderate global left vent ricular systolic dysfunction, severe hypokinesis of the inferior lateral wall, otherwise global hypo kinesis. There was some mild aortic stenosis and moderate tricuspid regurgitation. In any event, s he was diuresed and seen by cardiology team. She had some elevated troponins as well, likely type 2 non-ST elevation [place] in the setting of acute diastolic heart failure. There was a recommendation fo r cardiac catheterization; however, the family refused, they wanted just continue medical management . Initially, her Eliquis was held, but then it was restarted after a few days. She was continued o n her blood pressure medicines as well. Her shortness of breath symptoms improved. She received br eathing treatments as well. She was able to ambulate and tolerate a p.o. diet. She was also given antibiotics for mild upper respiratory infection, mild pneumonia, but her white blood cell count was improved. Cultures were negative. She had renal insufficiency and was seen by renal team as well. This also improved, her creatinine was down to baseline status by the time of discharge. She was also seen by blacktop spreader and adjustments were made to her insulin regimen as well. The grace dunne was seen by physical therapy who recommended for home health nursing and front-wheel walker, which we are setting and if all of this is set up, patient will be discharged home today in [facility]. DISCHARGE MEDICATIONS: She will be sent with the following medications: 1. Levaquin 750 mg p.o. daily for 5 more days. 2. Guaifenesin 200 mg q.4h. p.r.n. 3. Lasix 40 mg daily. 4. Throat lozenges q.1h. p.r.n., which is Cepastat. 5. She will continue allopurinol 100 mg daily. 6. Amitriptyline 25 mg at bedtime. 7. Eliquis 2.5 mg b.i.d. 8. Aspirin 81 mg daily. 9. Coreg 6.25 mg b.i.d. 10. Cilostazol 100 mg b.i.d. 11. Cyclobenzaprine 10 mg daily. 12. Dexilant 60 mg daily. 13. Digoxin 0.125 mg daily. 14. Benadryl 25 mg daily p.r.n. 15. Vitamin D2 50,000 units q. weekly. 16. Zetia 10 mg daily. 17. Ferrous sulfate 325 mg daily. 18. Glyburide 5 mg b.i.d. 19. Hydralazine 10 mg q.6h. 20. Lantus 20 units subcutaneous at bedtime. 21. Novolin R insulin 15 units with breakfast and dinner. 22. Imdur 20 mg t.i.d. 23. Meclizine 25 mg daily p.r.n. 24. Metformin 1000 mg with breakfast and dinner. 25. [place]-3, 2 grams daily. 26. Potassium chloride 20 mEq daily. FOLLOWUP: She will need to follow up with primary care doctor in the clinic in the next 1 to 2 week s. FINAL DIAGNOSES: 1. Shortness of breath secondary to acute diastolic heart failure, now improved. 2. Lactic acidosis, resolved. 3. Paroxysmal atrial fibrillation, on Eliquis. 4. History of coronary artery disease status post coronary artery bypass graft in the past. Contin ue current medications. 5. Acute on chronic systolic and diastolic heart failure, ejection fraction 30%, now euvolemic. 6. History of BIV-AICD in the past secondary to coronary artery disease. 7. Type 2 diabetes with A1c on this admission of 8.7, now sugars improved. 8. Rheumatoid arthritis. 9. Essential hypertension. 10. Chronic kidney disease. Time spent discharging the patient 45 minutes. Dictated By: LUIZA RIVERS Conf#: [id number] DID#: [id number]
[2016-11-26] MEDS: DIGOXIN 0.125 MG TAB PO SCH (13:45)
== END 2016-11-26 15:20 | disposition home or self-care (01) | DRG 280 ==
LOC: E/R 14:34 → ICU 16:41 → TEL 23:24
PROVIDERS: ADMIT Hospitalist; ATTEND Hospitalist
DX: I50.43 Acute on chronic combined systolic (congestive) and diastolic (congestive) heart failure (principal); J18.9 Pneumonia, unspecified organism; I21.4 Non-ST elevation (NSTEMI) myocardial infarction; N17.9 Acute kidney failure, unspecified; Z95.1 Presence of aortocoronary bypass graft; I48.91 Unspecified atrial fibrillation; E11.9 Type 2 diabetes mellitus without complications; M06.9 Rheumatoid arthritis, unspecified; I13.0 Hypertensive heart and chronic kidney disease with heart failure and stage 1 through stage 4 chronic kidney disease, or unspecified chronic kidney disease; I25.5 Ischemic cardiomyopathy; N18.9 Chronic kidney disease, unspecified; Z95.810 Presence of automatic (implantable) cardiac defibrillator
CPT/HCPCS: 36600; 71010; 80048; 80053; 80061; 80162; 80202; 81001; 81003; 82043; 82550; 82553; 82803; 82947; 82962; 83036; 83605; 83735; 83935; 84100; 84300; 84439; 84443; 84484; 85025; 85610; 85730; 87040; 87086; 87400; 90686; 92526; 92610; 93005; 93306; 94640; 94664; 94760; 96365; 96366; 96368; 96375; 97116; 97163; 97530; C9113; J0456; J0692; J0696; J1815; J1940; J3370; J3480; J7030; J7040; J7120

== ENCOUNTER 2017-01-31 14:39 | Emergency (ER) | payer MEDICARE, OTHER ==
[~2017-01-31] VITALS: Ht 157.5 cm; Wt 63.6 kg
[~2017-01-31 14:39] MED LIST changes: -ACET1TAB40 PO; -ADV25050 INH; -ALBU8.5H3 INH; +ALLO100T PO; -AMI25 PO; +AMIT25TA9 PO; +APIX2.5T PO; -APIX5TAB PO; +ASPI-664 PO; -CARV6.25 PO; +CARV6.2579 PO; +CEPASTAT MT; +CILO100T PO; +CYCL-319 PO; +DEXL60CA2 PO; +DIGO125T19 PO; +DIPH25CA6 PO; -DOCU-144 PO; -DOCU-159 PO; -ERGO500014 PO; +ERGO500037 PO; +FER325 PO; +FURO40TA4 PO; +GLYB5TAB3 PO; +GUAI-637 PO; +HYDR-3670 PO; -HYDR10TA36 PO; +ISOS20TA19 PO; -Isosorbide Dinitrate PO; +LANT3I SC; +LEVO750T25 PO; -LURA40TA PO; -MECL-77 PO; +MECL-90 PO; +METF500T4 PO; -NIT4 SL; -PANT40TA4 PO; +POTA20TA96 PO; +SS SC; -TRAM50TA2 PO
--- NOTE | 2017-01-31 14:47 | QN ---
Documentation Comment Patient was seen immediately upon arrival as the patient came through the ambulance doors. The patient has bleeding from the mouth. Medical screening exam was initiated. The patient will be sent to triage for vital signs will be seen by another provider. RAJAT CHOPRA MD Jan 31, 2017 14:47
[2017-01-31 14:56] VITALS: Ht 157.5 cm; Wt 63.6 kg
[2017-01-31] MEDS ORDERED: EPINEPHrine 0.1 MG/ML SYG INJ STA (15:53)
--- NOTE | 2017-01-31 16:03 | ERD ---
ER Documentation Chief Complaint Date/Time DATE: 01/31/17 TIME: 16:01 Chief Complaint BLOODING FROM MOUTH SINCE TOOTH EXTRACTION 0900 HPI This is a 86-year-old female with a history of rheumatoid arthritis, diabetes type 2, coronary artery disease, cardiomyopathy, hypertension, A. fib on Eliquis and aspirin presenting to the emergency department complaining of bleeding from tooth extractions of the 2 lower incisor teeth. Patient started having bleeding from the gums at 3 AM last night and her daughter has taken her to a dentist at 9 AM when the tooth extractions. Patient has been bleeding profusely since then. She denies any dizziness. She states that it is painful moderate in severity. She has not tried any medications. Denies chest pain shortness of breath ROS All systems reviewed and are negative except as per history of present illness. Medications Home Meds Active Scripts Levofloxacin* (Levaquin*) 750 Mg Tablet, 750 MG PO DAILY for 5 Days, TAB Prov:LUIZA PENA S. 11/26/16 Throat Lozenges* (Cepastat*) 9 Gabriel Lozenge, 1 LOZENGE MT Q1H Y for COUGH, #60 LOZENGE 2 Refills Prov:LUIZA PENA S. 11/26/16 Guaifenesin (Guaifenesin) 100 Mg/5 Ml Liquid, 200 MG PO Q4H Y for COUGH, #1 2 Refills Prov:LUIZA PENA S. 11/26/16 Furosemide* (Furosemide*) 40 Mg Tablet, 40 MG PO DAILY, #30 TAB 3 Refills Prov:LUIZA PENA S. 11/26/16 Reported Medications Insulin Human Regular (Novolin-R U-100) 100 Unit/Ml Soln, 15 UNITS SC AC BREAKFAST DINNER, EA 11/22/16 Insulin Glargine* (Lantus*) 100 Unit/Ml Soln, 20-25 UNIT SC QHS, #1 VIAL 11/22/16 Metformin Hcl* (Metformin Hcl*) 500 Mg Tablet, 1000 MG PO WITH BREAKFAST DINNE, #60 TAB 11/22/16 Ezetimibe* (Zetia*) 10 Mg Tablet, 10 MG PO DAILY, TAB 11/22/16 Potassium Chloride* (Potassium Chloride*) 20 Meq Tablet.er, 20 MEQ PO DAILY, TAB.SA 11/22/16 [place]-3 Acid Ethyl Esters (Lovaza) 1 Gm Capsule, 2 GM PO DAILY, CAP 11/22/16 Meclizine Hcl* (Bonine*) 25 Mg Tab.chew, 25 MG PO DAILY Y for VERTIGO, TAB.CHEW 11/22/16 Diphenhydramine Hcl* (Diphenhydramine Hcl*) 25 Mg Capsule, 25 MG PO DAILY Y for ITCHING, CAP 11/22/16 Ergocalciferol (Vitamin D2) (VITAMIN D2) 50,000 Unit Capsule, 56596 UNIT PO Q7D , CAP 11/22/16 Amitriptyline Hcl* (Amitriptyline Hcl*) 25 Mg Tablet, 25 MG PO QHS, #30 TAB 11/22/16 Apixaban* (Eliquis*) 2.5 Mg Tablet, 2.5 MG PO BID, TAB 11/22/16 Aspirin* (Aspirin* EC) 81 Mg Tablet.dr, 81 MG PO DAILY, TAB 11/22/16 Allopurinol* (Allopurinol*) 100 Mg Tablet, 100 MG PO DAILY, TAB 11/22/16 Ferrous Sulfate* (Ferrous Sulfate*) 325 Mg Tabec, 325 MG PO DAILY, TAB 11/22/16 Hydralazine Hcl* (Hydralazine Hcl*) 10 Mg Tablet, 10 MG PO Q6H, #60 TAB 11/22/16 Glyburide* (Glyburide*) 5 Mg Tablet, 5 MG PO BID, #60 TAB 11/22/16 Dexlansoprazole (Dexilant) 60 Mg Cap.mp, 60 MG PO DAILY, #30 CAP 11/22/16 Cilostazol* (Cilostazol*) 100 Mg Tablet, 100 MG PO BID, TAB 11/22/16 Carvedilol* (Carvedilol*) 6.25 Mg Tablet, 6.25 MG PO BID, #60 TAB 11/22/16 Isosorbide Dinitrate* (Isosorbide Dinitrate*) 20 Mg Tablet, 20 MG PO TID, TAB 11/22/16 Digoxin* (Digox*) 125 Mcg Tablet, 0.125 MG PO DAILY, TAB 11/22/16 Cyclobenzaprine Hcl* (Cyclobenzaprine Hcl*) 10 Mg Tablet, 10 MG PO DAILY, #60 TAB 11/22/16 Allergies Allergies: Coded Allergies: No Known Allergies (Verified Allergy, Mild, 11/22/16) PMhx/Soc History of Surgery: Yes (CABG) Anesthesia Reaction: No Hx Neurological Disorder: No Hx Respiratory Disorders: No Hx Cardiac Disorders: Yes (CAD, HTN, AFIB, AICD) Hx Psychiatric Problems: No Hx Miscellaneous Medical Probl: Yes (see notes) Hx Alcohol Use: No Hx Substance Use: No Hx Tobacco Use: No Physical Exam Vitals Vital Signs Date Time Temp Pulse Resp B/P Pulse Ox O2 Delivery O2 Flow Rate FiO2 01/31/17 14:56 97.7 70 18 79/76 99 Physical Exam Const: Well-developed well-nourished no acute distress Head: Atraumatic Eyes: Normal Conjunctiva ENT: Missing 2 lower incisors with active bleeding Neck: Full range of motion..~ No meningismus. Resp: Clear to auscultation bilaterally Cardio: Regular rate and rhythm, no murmurs Abd: Soft, non tender, non distended. Normal bowel sounds Skin: No petechiae or rashes Back: No midline or flank tenderness Ext: No cyanosis, or edema Neur: Awake and alert Psych: Normal Mood and Affect Results 24 hrs Laboratory Tests Test 01/31/17 15:06 Bedside Glucose 138mg/dL Current Medications Medications (Trade) Dose Ordered Sig/Keivn Route PRN Reason Start Time Stop Time Status Last Admin Dose Admin Epinephrine 1 mg ONCE STAT INJ 01/31/17 15:53 01/31/17 15:54 DC Procedures/MDM This is a 86-year-old female with a history of rheumatoid arthritis, diabetes type 2, coronary artery disease, cardiomyopathy, hypertension, A. fib on Eliquis and aspirin presenting to the emergency department complaining of bleeding from tooth extractions of the 2 lower incisor teeth. Patient started having bleeding from the gums at 3 AM last night and her daughter has taken her to a dentist at 9 AM when the tooth extractions. Patient has active bleeding on examination. The first procedure that we have tried is to apply Surgicel with pressure from sterile gauze. After 20 minutes it appears that most of the bleeding has stopped, on top of the Surgicel I applied a sterile gauze that had epinephrine and applied sterile gauze pressure for another 20 minutes. I reassessed the patient and the bleeding has stopped. I discussed with patient to keep the Surgicel with pressure on that location for the next 24 hours. I have discussed the patient to drink only soft and clear liquids therefore she will not to and start bleeding again. I have consulted my supervising physician Dr. Hewitt who has helped me and agrees with my plan above. Patient is hemodynamically stable and neurovascular intact for discharge. Discussed to return to the ER for any worsening signs or symptoms. Discussed to follow-up with her dentist today. Patient and her daughter understood and agree with the plan Departure Diagnosis: Primary Impression: Status post tooth extraction Additional Impression: Oral bleeding Condition: Stable DARNELL ENRIQUE PA-C Jan 31, 2017 16:03
== END 2017-01-31 17:15 | disposition home or self-care (01) ==
LOC: FTE 14:39
DX: K91.840 Postprocedural hemorrhage of a digestive system organ or structure following a digestive system procedure (principal); I25.10 Atherosclerotic heart disease of native coronary artery without angina pectoris; I10 Essential (primary) hypertension; E11.9 Type 2 diabetes mellitus without complications; Z79.4 Long term (current) use of insulin; Z79.82 Long term (current) use of aspirin; Z95.1 Presence of aortocoronary bypass graft; Z98.818 Other dental procedure status
CPT/HCPCS: 82962; J0171; 99283